=== PATIENT | female | born 1940 | race Caucasian/White ===

== ENCOUNTER → 2018-01-25 | Outpatient (CLI) | payer MEDICARE | END | disposition home or self-care (01) | LOC: LABPAT 10:33 | PROVIDERS: ATTEND Orthopaedic Surgery | DX: Z01.812 Encounter for preprocedural laboratory examination (principal) | CPT/HCPCS: 87070 ==

== ENCOUNTER → 2018-01-25 | Outpatient (CLI) | payer MEDICARE ==
[~2018-01-25] MED LIST: DOBUTamine DRIP for NUC MED 500 MG in DEXTROSE/WATER 1 250ML.BAG IV ONE
--- NOTE | 2018-01-25 13:40 | ECHOS ---
STRESS ECHOCARDIOGRAM DOBUTAMINE STRESS ECHO DATE OF SERVICE: 01/25/2018 INDICATIONS: Abnormal EKG. MEDICATIONS: BASELINE HEART RATE: 69 BASELINE BLOOD PRESSURE: 104/48 MAXIMUM HEART RATE: 124 MAXIMUM BLOOD PRESSURE: 133/50 85% MPHR: 123 100% MPHR: 145 METS: MAXIMUM STAGE REACHED: TOTAL EXERCISE TIME: CLINICAL INFORMATION: Baseline heart rate 69 beats per minute. Baseline blood pressure 104/48 mmHg. Occasional PVCs noted at baseline. Patient received dobutamine infusion per protocol up to 40 mcg. Heart rate and blood pressure remained normal. Peak heart rate 124 beats per minute with a stepwise increment in dobutamine infusion there was no ECG evidence for ischemia. However, the frequency of the PVCs increased without any nonsustained ventricular tachycardia. Trigeminal and quadrigeminal PVCs noted with dobutamine. Baseline 2D echo images showed normal LV size and systolic function. With dobutamine, there was a stepwise increment in overall LV contractility without developing any wall motion abnormalities. However, the images are suboptimal, but the patient refused echo contrast on account of her previous reaction to a different substance. At recovery regional global LV systolic function remained normal. IMPRESSION: 1. Significant increase in frequency of outflow tract PVCs with the left bundle branch block morphology with dobutamine infusion. No nonsustained ventricular tachycardia. 2. No ECG evidence for ischemia. No clear-cut echocardiographic evidence for ischemia. In the future for pharmacologic stress testing, the nuclear based approach will be used since her echo acoustic images are suboptimal and she has reacted to Definity contrast in the past. MMODL / IJN: [id number] /
== END | disposition home or self-care (01) ==
LOC: RADNMMAIN 08:53
PROVIDERS: ATTEND Family Medicine
DX: I49.3 Ventricular premature depolarization (principal); I44.7 Left bundle-branch block, unspecified
CPT/HCPCS: 93351; J1250

== ENCOUNTER 2018-02-04 12:59 | Inpatient (IN) | payer MEDICARE ==
[2018-01-29 14:39] VITALS: BMI 32.1
--- NOTE | 2018-02-03 13:13 | HP ---
HISTORY AND PHYSICAL REASON FOR ADMISSION: Surgery scheduled for 02/04/2018 HISTORY OF PRESENT ILLNESS: Meredith Nunes is a 77-year-old patient seen with progressive right knee symptomatic osteoarthritis. After treatment options were discussed with her, she elected to proceed with total knee arthroplasty. Consent regarding the procedure was obtained. Medical clearance was provided by Dr. Ramiro Ortiz. Nephrology clearance was provided by Dr. Mcbride. PAST MEDICAL HISTORY: Hypertension, hyperlipidemia, hypothyroidism, kidney disease. PAST SURGICAL HISTORY: Cataract surgery, hysterectomy, tonsillectomy. MEDS: Baclofen, gabapentin, hydralazine, levothyroxine, losartan, pravastatin, propranolol, and nefazodone ketogaga/baclo. ALLERGIES: NIACIN. SOCIAL HISTORY: Patient denies tobacco use. PHYSICAL EXAMINATION: Evaluation of the right knee range of motion is -2/3 to 120 degrees. There is tenderness along the medial joint line. Crepitus along the medial and patellofemoral compartments with range of motion. Pain with patellofemoral compression. Ligaments are stable. Hip rotation is without pain. Distal neurovascular exam is intact. RADIOGRAPHS: Radiographs of the right knee reveal severe medial moderate patellofemoral compartment osteoarthritis. IMPRESSION: 1. Right knee osteoarthritis. 2. Hypertension. 3. Hyperlipidemia. 4. Hypothyroidism. 5. Kidney disease. PLAN: Right total knee arthroplasty. Surgery scheduled 02/04/2018. MMODL / IJN: [id number] /
[~2018-02-04 12:59] MED LIST changes: +ACETAMINOPHEN TAB 500 MG TAB PO ONE; +DEXAMETHASONE SOD PHOSPHATE 10 MG/ML 1 ML VIAL IV ONE; -DOBUTamine DRIP for NUC MED 500 MG in DEXTROSE/WATER 1 250ML.BAG IV ONE; +LIDOCAINE 1% 20 ML VIAL (10MG/ML) FOR IV START INTRADERMA PRN; +MELOXICAM 7.5 MG TAB PO ONE; +MIDAZOLAM 2 MG/2 ML VIAL IV PRN; +ONDANSETRON 4 MG/2 ML VIAL IVP ONE; +ONDANSETRON 4 MG/2 ML VIAL ONE; +ROPIVACAINE 1,100 MG, SODIUM CHLORIDE 0.9% 330 ML MISCELLANE PRN; +TRANEXAMIC ACID 1,000 MG in SODIUM CHLORIDE 0.9% 50 ML IVPB ONE; +ceFAZolin IN SWFI 2 GM/20 ML SYRINGE IVP ONE; +fentaNYL (PF) 50 MCG/ML 2 ML AMP IV PRN
[2018-02-04] MEDS ORDERED: ROPIVACAINE 246.25 MG, EPINEPHrine 0.5 MG, KETOROLAC 30 MG, cloNIDine HCL/PF 80 MCG, WA... MISCELLANE ONE ×10 (13:19→14:51)
[2018-02-04] MEDS: LACTATED RINGERS 1,000 ML IV SCH ×2 (13:40→20:32)
[2018-02-04] MEDS ORDERED: MIDAZOLAM 2 MG/2 ML VIAL ONE ×2 (13:52→15:46)
[2018-02-04] MEDS ORDERED: fentaNYL (PF) 50 MCG/ML 2 ML AMP ONE (13:52)
[2018-02-04 13:55] LABS: Glucose,Whole Blood 96 mg/dL (75-99)
--- NOTE | 2018-02-04 15:18 | P.ONQ ---
Anesthesiology Proc Note - PNB - Peripheral Nerve Block Performed Right Adductor Canal Infusion Time Out Performed: Yes Procedure Start Time: 14:15 Indication: Acute Post-Operative Pain, Analgesia Specifically requested for management of pain by DrElkin: Jett Anguiano Sedation Type: Awake Preparation: Sterile Prep Position: Supine Catheter Depth at Skin (cm): 8 Catheter: Indwelling Needle Types: Other (see comment) (Pajunk) Needle Size: 100mm (4") Needle Gauge: 21 Technique: Ultrasound Injectate: 0.5% Ropivacaine (see comment for volume) (20cc) Blood Aspirated: No Pain Paresthesia on Injection Noted: No Resistance on Injection: Normal Events: Uneventful and Well Tolerated
[2018-02-04] MEDS ORDERED: SODIUM CHLORIDE 0.9% 100 ML BAG ONE (15:46)
[2018-02-04] MEDS ORDERED: diphenhydrAMINE 50 MG/ML 1 ML VIAL ONE (15:46)
[2018-02-04] MEDS ORDERED: TRANEXAMIC ACID 1,000 MG/10 ML VIAL ONE (15:46)
[2018-02-04] MEDS ORDERED: ePHEDrine SULFATE/0.9% NACL/PF 50 MG/5 ML SYRINGE IV ONE (15:46)
[2018-02-04] MEDS ORDERED: PROPOFOL 10 MG/ML 20 ML VIAL IV ONE (15:46)
[2018-02-04] MEDS ORDERED: ceFAZolin 3,000 MG in SODIUM CHLORIDE 0.9% IRRIGATIO 3,000 ML IRRIGATION ONE (16:27)
[2018-02-04] MEDS ORDERED: LACTATED RINGERS 1,000 ML IV ONE (17:00)
[2018-02-04] MEDS ORDERED: HYDROmorphone 1 MG/ML 1 ML SYRINGE IVP PRN ×3 (18:03)
[2018-02-04] MEDS ORDERED: HYDROcodone/APAP 7.5-325MG 1 EACH TAB PO PRN ×2 (18:03)
[2018-02-04] MEDS ORDERED: ONDANSETRON 4 MG/2 ML VIAL IVP PRN (18:03)
[2018-02-04] MEDS ORDERED: NALOXONE 0.4 MG/ML 1 ML VIAL IV PRN (18:03)
--- NOTE | 2018-02-04 18:03 | P.OP ---
Date of Procedure: 02/04/18 Preoperative Diagnosis: Right knee osteoarthritis Postoperative Diagnosis: Right knee osteoarthritis Procedure(s) Performed: Right total knee arthroplasty Implants: 1. Microport evolution MP size 4 right cemented femoral component 2. Microport evolution size 4 right keeled tibial baseplate 3. Microport evolution MP CS size 4 right 14 mm polyethylene tibial insert 4. Microport advance 35 mm all polyethylene cemented patella Anesthesia: regional (Adductor canal catheter), local, spinal Surgeon: Jett Anguiano Extractor Tender Raw Stock #1: Roly Ross Estimated Blood Loss (ml): 75 Pathology: other (Bone) Condition: stable Disposition: PACU Indications for Procedure: 77-year-old patient seen with symptomatic right knee osteoarthritis. After treatment options were discussed, she elected to proceed with total knee arthroplasty. Operative Findings: See description of procedure Description of Procedure: Patient was taken to the operative suite after having an adductor canal catheter placed by the department of anesthesia. Patient underwent a spinal anesthetic by the department of anesthesia. Patient was given preoperative IV intake antibiotics and TXA. A well-padded tourniquet was placed about the right lower extremity. The lower extremity was then prepped and draped in the normal sterile orthopedic fashion. The extremity was elevated, a tourniquet was insufflated to 350. A standard anterior incision was made sharply through skin. Dissection was taken down through the subcutaneous soft tissues down to the extensor mechanism. A medial arthrotomy was performed, patella was everted and knee was flexed. There was advanced osteoarthritis noted. A proximal tibial cutting guide was positioned. Proximal tibial cut was made. A distal intramedullary femoral cutting guide was positioned, distal femoral cut made. We placed the appropriate sizing guide and selected the appropriate size. A distal 4-in-1 femoral cutting block was positioned, distal femoral cuts were made. We now placed a trial femoral component into position, along with an appropriate size tibial tray and insert. We now took the knee through range of motion and had full extension good flexion and good overall soft tissue balance noted. The patella was everted and a flush cut made with patellar quad tendon. We templated the patella, appropriate drill holes were made. An appropriate trial patella was positioned, knee was taken through full range of motion with the patella tracking very nicely. The trial patella was removed. Drill holes were made through the femoral component. All trial components were removed after marking off the appropriate rotation of the tibia. Retractors were now positioned along the proximal tibia. An appropriate keel punch was made with the appropriate size tibial guide. At this point appropriate size implants were chosen and opened. The joint was irrigated copiously with pulse lavage mechanical irrigation. The posterior capsule was infiltrated with local analgesic. We mixed antibiotic methylmethacrylate. Once the methyl methacrylate was ready, the tibial component was cemented into place removing any excess methylmethacrylate. The femoral component was cemented into place removing the removing any excess methylmethacrylate. We then inserted the appropriate size polyethylene tibial insert. We made sure that it was locked into position. We took the knee into full extension, and then back in a flexion making sure we had removed any excess methylmethacrylate. The patellar component was then cemented down and secured with clamp. Excess methylmethacrylate removed. We kept the knee in full extension, patellar clamp in position until methylmethacrylate had hardened. Once it had hardened the patellar clamp was removed. The knee was taken through full range of motion. The patella tracked nicely. There was good soft tissue balancing. The tourniquet was now released. Additional hemostasis was achieved via electrocautery. A second gram of TXA was given. The wound was irrigated with pulse lavage mechanical irrigation. The superficial soft tissues were infiltrated local analgesic. The extensor mechanism was repaired with Vicryl. We checked the repair with range of motion and it was stable. The subcutaneous soft tissues were repaired with Vicryl in layers. The skin was approximated with pernio/Dermabond. Sterile dressings were applied followed by loose web roll and Mak bandage. The patient was transferred to a bed, and taken to recovery in stable and satisfactory condition. Tito HUDSON assisted with the procedure.
--- NOTE | 2018-02-04 18:47 | XR ---
EXAMINATION TYPE: XR knee limited RT DATE OF EXAM: 02/04/2018 COMPARISON: NONE HISTORY: Postop knee surgery TECHNIQUE: 2 views FINDINGS: There is right knee prosthesis. Components are in anatomic position. IMPRESSION: No complicating process seen.
[2018-02-04] MEDS ORDERED: BACLOFEN 10 MG TAB PO SCH (21:00)
[2018-02-04] MEDS ORDERED: DULoxetine HCL 30 MG CAPSULE.DR PO SCH (21:00)
[2018-02-04] MEDS ORDERED: SENNOSIDES-DOCUSATE SODIUM 1 EACH TAB PO SCH (21:00)
[2018-02-04] MEDS: ENOXAPARIN 30 MG/0.3 ML SYRINGE SQ SCH (21:54)
[2018-02-04] MEDS: SODIUM CHLORIDE 0.9% 1,000 ML IV SCH (21:56)
[2018-02-04] MEDS: GABAPENTIN 300 MG CAP PO SCH (21:56)
[2018-02-04] MEDS: hydrOXYzine HCL 10 MG TAB PO SCH (21:57)
[2018-02-04] MEDS: FAMOTIDINE 20 MG TAB PO SCH (21:59)
[2018-02-04] MEDS: traMADol 50 MG TAB PO SCH (23:14)
[2018-02-04] MEDS: ceFAZolin IN SWFI 2 GM/20 ML SYRINGE IVP SCH (23:15)
[2018-02-05] MEDS ORDERED: LEVOTHYROXINE 25 MCG TAB PO SCH (06:00)
[2018-02-05] MEDS: GABAPENTIN 300 MG CAP PO SCH (08:10)
[2018-02-05] MEDS: FAMOTIDINE 20 MG TAB PO SCH (08:10)
[2018-02-05] MEDS: ENOXAPARIN 30 MG/0.3 ML SYRINGE SQ SCH (08:10)
[2018-02-05 08:11] LABS: Basophils % (A) 0 %; Eosinophils % (A) 0 %; HCT 36.9 % (34.0-46.0); HGB 11.7 gm/dL (11.4-16.0); Lymphocytes # (A) 1.2 k/uL (1.0-4.8); Lymphocytes % (A) 10 %; MCHC 31.7 g/dL (31.0-37.0); MCV 94.7 fL (80.0-100.0); Mean Platelet Volume 7.3; Monocytes # (A) 0.7 k/uL (0-1.0); Monocytes % (A) 5 %; Neutrophils # (A) 10.3 k/uL (1.3-7.7); Neutrophils % (A) 85 %; Platelet Count 295 k/uL (150-450); RBC 3.89 m/uL (3.80-5.40); RDW 13.3 % (11.5-15.5); WBC 12.2 k/uL (3.8-10.6)
[2018-02-05] MEDS: hydrOXYzine HCL 10 MG TAB PO SCH (08:11)
[2018-02-05] MEDS: traMADol 50 MG TAB PO SCH ×2 (08:11→14:06)
[2018-02-05] MEDS: ceFAZolin IN SWFI 2 GM/20 ML SYRINGE IVP SCH (08:59)
[2018-02-05] MEDS ORDERED: MELOXICAM 7.5 MG TAB PO SCH (09:00)
[2018-02-05] MEDS ORDERED: PROPRANOLOL LA 60 MG CAP.SA.24H PO SCH (09:00)
[2018-02-05] MEDS ORDERED: FAMOTIDINE 20 MG TAB PO SCH (09:00)
[2018-02-05 10:13] VITALS: BP 117/63; PULSE 92; RESP 12; TEMP 98.8
--- NOTE | 2018-02-05 11:09 | P.PN ---
Progress Note - Text Anesthesia POD 1. Patient is status post right TKA under spinal anesthesia with a right adductor canal catheter placed for postoperative pain relief. With ropivacaine 0.2% running at 8 cc's per hour, the patient's VAS is (1, 3). Catheter site is clean dry and intact.
--- NOTE | 2018-02-05 13:27 | P.PN ---
Subjective Progress Note Date: 02/05/18 Principal diagnosis: Status post right total knee arthroplasty Patient seen today resting in her hospital bed, she appears comfortable. Her is present at bedside. She denies any acute pain. She denies any headaches, lightheadedness, chest pain or shortness of breath. Objective - Vital Signs Vital signs: Vital Signs Temp 98.8 F 02/05/18 08:11 Pulse 92 02/05/18 08:11 Resp 12 02/05/18 08:11 BP 117/63 02/05/18 08:11 Pulse Ox 92 L 02/05/18 08:11 Intake & Output 02/04/18 02/05/18 02/05/18 18:59 06:59 18:59 Intake Total 1301 100 Output Total 75 600 Balance 1226 -500 Intake: IV 1301 Oral 100 Output: Urine 600 Estimated Blood Loss 75 Other: Voiding Method Toilet # Voids 1 - Exam Right lower extremity: Incision is clean, dry, and intact. The prineo tape is in good condition. There is minimal soft tissue swelling and ecchymosis surrounding the medial and lateral aspects of the incision. Calf is soft, no tenderness with palpation. Plantar flexion, dorsiflexion, EHL, FHL are intact. Sensory exam to light touch throughout the extremity is intact, dorsal pedis pulses 2+. - Labs CBC & Chem 7: 02/05/18 06:49 Labs: Abnormal Lab Results - Last 24 Hours (Table) 02/05/18 Range/Units 06:49 WBC 12.2 H (3.8-10.6) k/uL Neutrophils # 10.3 H (1.3-7.7) k/uL Assessment and Plan Plan: Assessment: Postop day 1 status post right total knee arthroplasty Plan: Pain control, we'll discharge home on oral medication GI and DVT prophylaxis, aspirin 325 mg twice a day Wound care instructions discussed Home therapy and nursing after discharge Medical recommendations Discharge planning: Patient will be discharged home today Time with Patient: Less than 30
--- NOTE | 2018-02-05 13:31 | P.DS ---
Providers Date of admission: 02/04/18 12:59 Expected date of discharge: 02/05/18 Attending physician: Jett Anguiano Consults: 02/04/18 18:03 Consult Physician Routine Consulting Provider: Ramiro Ortiz Consult Reason/Comments: Medical management Do you want consulting provider notified?: Yes 02/04/18 19:03 Consult Physician Routine Consulting Provider: Heidy Francois Consult Reason/Comments: medical managment Do you want consulting provider notified?: Yes Primary care physician: Ramiro Ortiz [place] [facility] Course: Date of admission: 02/04/2018 Date of discharge: 02/05/2018 Admission diagnosis: Status post right total knee arthroplasty Discharge diagnosis: same Attending physician: Dr. Anguiano Surgical procedures: right total knee arthroplasty Brief history: Patient is a 77-year-old female with a history of progressive primary right knee osteoarthritis. At this point patient has failed conservative treatment measures and has opted to proceed with a elective right total knee arthroplasty. Hospital course: Details of patient's surgery can be found in operative report. Patient tolerated the procedure well and was subsequently transported to orthopedic floor. Patient's orthopeidc and medical care was provided daily. Patient had daily laboratory tests performed for evaluation of overall blood counts . Patient had daily physical therapy to include strengthening range of motion as well as education with walker ambulation. Patient had daily CPM usage as part of their physical therapy program. Patient was treated with Lovenox for their postoperative DVT prophylaxis during their inpatient stay. Patient was noted to have a relatively uneventful postoperative course. Patient reported satisfactory pain control with oral pain medications by postoperative day 0. Patient showed satisfactory progress with physical therapy. Patient moved steadily through the program and had no difficulty meeting the goals by postoperative day 1. Given patient's otherwise satisfactory course and having met physical therapy goals, plan is to discharge patient home on postoperative day 1. Discharge condition/disposition: Patient will be discharged home in stable condition. Discharge medications: Instructions are given on resumption of patient's normal daily medications per primary care recommendation, in addition patient will be prescribed [place] 7.5 mg/325 mg, tramadol 50 mg, aspirin 325 mg. Discharge instructions: 1. Wound care and infection precautions, keep incision dry and covered while showering, no lotions, creams, moisturizers. No soaking, tubs, pools, hottubs. Do not scrub over the incision. 2. Weight-bear as tolerated with walker / cane until follow-up. 3. Ice and elevate when necessary. Do not exceed 20 minutes per hour with ice pack. 4. Utilize compression sleeve until seen at first follow up appointment. 5. Visiting nursing care. 6. Home physical therapy including home CPM. 7. Pain meds and anticoagulants per prescription. 8. Pain medication has potential to cause constipation. Increase oral fluid and fiber intake. Contact primary care provider if you have not had a bowel movement within 48 hours after discharge 9. No anti-inflammatory medication until discussed at first post operative visit, this including Motrin, Aleve, Mobic, Diclofenac. 10. Follow up in office at 2 weeks postop with Tito Ross PA-C 11. Follow up with your primary care doctor 7-10 days after discharge. 12. Contact [facility] with any questions, . Procedures: Right total knee arthroplasty Patient Condition at Discharge: Good Plan - Discharge Summary Discharge Rx Participant: Yes New Discharge Prescriptions: New Aspirin 325 mg PO BID #60 tab HYDROcodone/APAP 7.5-325MG [[place]woods 7.5] 1 - 2 each PO Q6HR PRN #56 tab PRN Reason: Pain traMADol HCl [Ultram] 50 mg PO Q6H PRN #28 tab PRN Reason: Pain No Action Cyanocobalamin (Vitamin B-12) [Vitamin B-12] 3,000 mcg PO DAILY Cholecalciferol [Vitamin D3] 5,000 unit PO BID Vitamin E (Dl,Tocopheryl Acet) [Vitamin E] 400 unit PO DAILY Propranolol HCl [Inderal] 60 mg PO QAM Pravastatin Sodium [Pravachol] 10 mg PO Q48H Baclofen 10 mg PO HS rOPINIRole HCL [Requip] 1 mg PO BID Levothyroxine Sodium 25 mcg PO QAM hydrOXYzine HCL [Atarax] 10 mg PO BID Nefazodone HCl 150 mg PO DAILY@1500 DULoxetine HCL [Cymbalta] 30 mg PO HS Floragen 3 (Dose Unknown) 1 tab PO DAILY Clobetasol Propionate [Temovate 0.05% Cream] 1 applic TOPICAL BID Lidocaine/Phylocaine 1 applicate TOPICAL QID PRN PRN Reason: Pain Ketogaba/Baclo/Lido/Prilo(Nmc) 1 applicate TOPICAL TID PRN PRN Reason: Pain Triamcinolone 0.5% Cream [Kenalog 0.5% Cream] 1 applic TOPICAL TID PRN PRN Reason: Rash Losartan [Cozaar] 25 mg PO HS Discharge Medication List Baclofen 10 mg PO HS 01/29/18 [History] Cholecalciferol [Vitamin D3] 5,000 unit PO BID 01/29/18 [History] Clobetasol Propionate [Temovate 0.05% Cream] 1 applic TOPICAL BID 01/29/18 [ History] Cyanocobalamin (Vitamin B-12) [Vitamin B-12] 3,000 mcg PO DAILY 01/29/18 [ History] DULoxetine HCL [Cymbalta] 30 mg PO HS 01/29/18 [History] Floragen 3 (Dose Unknown) 1 tab PO DAILY 01/29/18 [History] Ketogaba/Baclo/Lido/Prilo(Nmc) 1 applicate TOPICAL TID PRN 01/29/18 [History] Levothyroxine Sodium 25 mcg PO QAM 01/29/18 [History] Lidocaine/Phylocaine 1 applicate TOPICAL QID PRN 01/29/18 [History] Nefazodone HCl 150 mg PO DAILY@1500 01/29/18 [History] Pravastatin Sodium [Pravachol] 10 mg PO Q48H 01/29/18 [History] Propranolol HCl [Inderal] 60 mg PO QAM 01/29/18 [History] Triamcinolone 0.5% Cream [Kenalog 0.5% Cream] 1 applic TOPICAL TID PRN 01/29/18 [History] Vitamin E (Dl,Tocopheryl Acet) [Vitamin E] 400 unit PO DAILY 01/29/18 [History] hydrOXYzine HCL [Atarax] 10 mg PO BID 01/29/18 [History] rOPINIRole HCL [Requip] 1 mg PO BID 01/29/18 [History] Losartan [Cozaar] 25 mg PO HS 02/04/18 [History] Aspirin 325 mg PO BID #60 tab 02/05/18 [Rx] HYDROcodone/APAP 7.5-325MG [[place]woods 7.5] 1 - 2 each PO Q6HR PRN #56 tab 02/05/18 [ Rx] traMADol HCl [Ultram] 50 mg PO Q6H PRN #28 tab 02/05/18 [Rx] Follow up Appointment(s)/Referral(s): Ramiro Ortiz MD [Primary Care Provider] - 02/12/18 3:00 pm [facility], [NON-STAFF] - Roly Ross PAC [PHYSICIAN ANTENNA RIGGER] - 02/20/18 4:00 pm Patient Instructions/Handouts: Knee Replacement (DC) Activity/Diet/Wound Care/Special Instructions: Orthopedic Discharge Instructions: 1. Wound care and infection precautions, keep incision dry and covered while showering, no lotions, creams, moisturizers. No soaking, pools, hot tubs. Do not scrub over incision. 2. Weight-bear as tolerated with walker / cane until follow-up. 3. Ice and elevate when necessary. Do not exceed 20 minutes per hour with ice pack. 4. Utilize compression sleeve until seen at first follow up appointment. 5. Visiting nursing care. 6. Home physical therapy including home CPM. 7. Pain meds and anticoagulants per prescription. 8. Pain medication has potential to cause constipation. Increase oral fluid and fiber intake. Contact primary care provider if you have not had a bowel movement within 48 hours after discharge. 9. No anti-inflammatory medication until discussed at first post operative visit, this including Motrin, Aleve, Mobic, Diclofenac 10. Follow up in office at 2 weeks postop with Tito Ross PA-C 11. Follow up with your primary care doctor 7-10 days after discharge. 12. Contact [facility] with any questions, . Discharge Disposition: HOME WITH HOME HEALTH SERVICES
--- NOTE | 2018-02-05 13:59 | P.CONS ---
History of Present Illness - History of Present Illness This is a pleasant 77 years old female with past medical history of COPD, GERD, hyperlipidemia, hypertension, cervicitis, pneumonia, there disorder, psoriasis, migraine, history of brain aneurysm, neuropathic, CKD stage III spinal stenosis , restless leg syndrome and osteoarthritis who presents because of DrElkin right knee arthroplasty, for her right knee osteoarthritis who failed conservative treatment measures Review of Systems CONSTITUTIONAL: No fever, no malaise, no fatigue. HEENT: No recent visual problems or hearing problems. Denied any sore throat. CARDIOVASCULAR: No orthopnea, PND, no palpitations, no syncope. PULMONARY: No shortness of breath, no cough, no hemoptysis. GASTROINTESTINAL: No diarrhea, no nausea, no vomiting, no abdominal pain. Normoactive bowel sounds. NEUROLOGICAL: No headaches, no weakness, no numbness. HEMATOLOGICAL: Denies any bleeding or petechiae. GENITOURINARY: Denies any burning micturition, frequency, or urgency. MUSCULOSKELETAL/RHEUMATOLOGICAL: Denies any joint pain, swelling, or any muscle pain. ENDOCRINE: Denies any polyuria or polydipsia. Past Medical History Past Medical History: COPD, GERD/Reflux, Hyperlipidemia, Hypertension, Osteoarthritis (OA), Pneumonia, Skin Disorder, Thyroid Disorder Additional Past Medical History / Comment(s): psoriasis, migraines, hx brain aneurysm, varicose veins, palpitations with anxiety attacks, emphysema, bronchitis, neuropathy, hypoglycemia, stage III kidney disease, degenerative disk diasease, dry eyes/eye distortion/double vision, spinal stenosis, urinary leakage(wears pads), restless legs History of Any Multi-Drug Resistant Organisms: None Reported Past Surgical History: Appendectomy, Hysterectomy, Orthopedic Surgery, Tonsillectomy Additional Past Surgical History / Comment(s): surgery for brain aneurysm/clips( can not have MRI's), ORIF left wrist, cyst removed under eyelids, sinus fisutula surgery, mult foot surgergies(bunions, toes rearranged, tumors in feet removed), jia cataracts, membrane on retina removed jia eyes, yag procedure to put holes in lens jia eyes, Past Anesthesia/Blood Transfusion Reactions: No Reported Reaction Past Psychological History: Anxiety, Depression Smoking Status: Former smoker Past Alcohol Use History: Daily Additional Past Alcohol Use History / Comment(s): quit smoking 10 yrs ago, smoked for 50 yrs, 1 PPD. Past Drug Use History: None Reported - Past Family History Father Family Medical History: Cancer Additional Family Medical History / Comment(s): colon Brother(s) Family Medical History: Cancer Additional Family Medical History / Comment(s): pancreatic Medications and Allergies Home Medications Medication Instructions Recorded Confirmed Type Baclofen 10 mg PO HS 01/29/18 02/04/18 History Cholecalciferol [Vitamin D3] 5,000 unit PO BID 01/29/18 02/04/18 History Clobetasol Propionate [Temovate 1 applic TOPICAL BID 01/29/18 02/04/18 History 0.05% Cream] Cyanocobalamin (Vitamin B-12) 3,000 mcg PO DAILY 01/29/18 02/04/18 History [Vitamin B-12] DULoxetine HCL [Cymbalta] 30 mg PO HS 01/29/18 02/04/18 History Floragen 3 (Dose Unknown) 1 tab PO DAILY 01/29/18 02/04/18 History Ketogaba/Baclo/Lido/Prilo(Nmc) 1 applicate TOPICAL TID PRN 01/29/18 02/04/18 History Levothyroxine Sodium 25 mcg PO QAM 01/29/18 02/04/18 History Lidocaine/Phylocaine 1 applicate TOPICAL QID PRN 01/29/18 02/04/18 History Nefazodone HCl 150 mg PO DAILY@1500 01/29/18 02/04/18 History Pravastatin Sodium [Pravachol] 10 mg PO Q48H 01/29/18 02/04/18 History Propranolol HCl [Inderal] 60 mg PO QAM 01/29/18 02/04/18 History Triamcinolone 0.5% Cream [Kenalog 1 applic TOPICAL TID PRN 01/29/18 02/04/18 History 0.5% Cream] Vitamin E (Dl,Tocopheryl Acet) 400 unit PO DAILY 01/29/18 02/04/18 History [Vitamin E] hydrOXYzine HCL [Atarax] 10 mg PO BID 01/29/18 02/04/18 History rOPINIRole HCL [Requip] 1 mg PO BID 01/29/18 02/04/18 History Losartan [Cozaar] 25 mg PO HS 02/04/18 02/04/18 History Aspirin 325 mg PO BID #60 tab 02/05/18 Rx HYDROcodone/APAP 7.5-325MG [[place] 1 - 2 each PO Q6HR PRN #56 tab 02/05/18 Rx 7.5] traMADol HCl [Ultram] 50 mg PO Q6H PRN #28 tab 02/05/18 Rx Allergies Allergy/AdvReac Type Severity Reaction Status Date / Time Iodinated Contrast- Oral and Allergy Dyspnea Verified 02/04/18 19:20 IV Dye niacin Allergy headaches Verified 02/04/18 19:20 and shakes Edlixqu-Jad-Lex Reductase Allergy dizziness Verified 02/04/18 19:20 Inhibitor perflutren [From [employer]] AdvReac Dyspnea Verified 02/04/18 19:20 Physical Exam Vitals: Vital Signs Temp Pulse Pulse Resp BP Pulse Ox 02/05/18 08:11 98.8 F 92 12 117/63 92 L 02/05/18 01:10 98.2 F 89 16 108/72 90 L 02/04/18 21:00 76 130/79 02/04/18 20:45 80 137/83 02/04/18 20:30 76 146/90 02/04/18 20:29 94 L 02/04/18 20:15 71 130/81 02/04/18 20:00 74 135/87 02/04/18 19:45 81 141/70 02/04/18 19:30 67 155/105 02/04/18 19:15 69 110/61 02/04/18 19:00 97.5 F L 71 16 115/73 94 L 02/04/18 18:42 68 16 122/63 96 02/04/18 18:27 66 16 141/76 96 02/04/18 18:12 97.1 F L 71 20 145/67 92 L 02/04/18 14:30 66 16 107/58 96 Intake and Output 02/04/18 02/05/18 02/05/18 22:59 06:59 14:59 Intake Total 1101 Output Total 75 600 Balance 1026 -600 Intake: IV 1001 Oral 100 Output: Urine 600 Estimated Blood Loss 75 Other: Voiding Method Toilet # Voids 1 GENERAL: The patient is alert and oriented x3, not in any acute distress. Well developed, well nourished. HEENT: Pupils are round and equally reacting to light. EOMI. No scleral icterus. No conjunctival pallor. Normocephalic, atraumatic. No pharyngeal erythema. No thyromegaly. CARDIOVASCULAR: S1 and S2 present. No murmurs, rubs, or gallops. PULMONARY: Chest is clear to auscultation, no wheezing or crackles. ABDOMEN: Soft, nontender, nondistended, normoactive bowel sounds. No palpable organomegaly. MUSCULOSKELETAL: No joint swelling or deformity. -Right knee incision is clean and dry, her examination deferred to the primary team EXTREMITIES: No cyanosis, clubbing, or pedal edema. NEUROLOGICAL: Gross neurological examination did not reveal any focal deficits. SKIN: No rashes. Results CBC & Chem 7: 02/05/18 06:49 Labs: Abnormal Lab Results - Last 24 Hours (Table) 02/05/18 Range/Units 06:49 WBC 12.2 H (3.8-10.6) k/uL Neutrophils # 10.3 H (1.3-7.7) k/uL Assessment and Plan Assessment: osteoarthritis, including the right knee joint Status post total right knee arthroplasty by the orthopedic team COPD GERD hyperlipidemia hypertension Hypothyroidism psoriasis, migraine, history of brain aneurysm neuropathy CKD stage III spinal stenosis restless leg syndrome Plan: Continue with same treatment. Continue symptomatic treatment. Resume home medication. Patient with leukocytosis mostly its reactive from surgery, patient doesn't have overt signs symptoms of infection. Antibiotics will have more than benefits. We recommend close monitoring of white blood cell count as per primary team whether inpatient or outpatient. Pain management and DVT prophylaxis as per primary team. We recommend patient to follow-up with her primary care doctor in 1 week after discharge, patient already has an appointment with her PCP on 02/12/18 at 3 PM patient confirmed to me she agrees with this appointment time and date. Instructed her to check her blood cells with her PCP within [facility] and she verbalized understanding and acceptance Recommendation discussed with staff Thank you for consulting us
[2018-02-05] MEDS: LACTATED RINGERS 1,000 ML IV SCH (14:59)
[2018-02-05] MEDS ORDERED: NEFAZODONE HCL PO SCH (15:00)
[2018-02-05] MEDS: SODIUM CHLORIDE 0.9% 1,000 ML IV SCH (15:00)
[2018-02-05] MEDS ORDERED: LOSARTAN 25 MG TAB PO SCH (21:00)
== END 2018-02-05 15:50 | disposition home health service (06) | DRG 470 ==
LOC: 2ORMAIN 12:59 → 3SUR 18:48
PROVIDERS: ADMIT Orthopaedic Surgery; ATTEND Orthopaedic Surgery
PROC: 0SRC0J9 Replacement of Right Knee Joint with Synthetic Substitute, Cemented, Open Approach (ICD-10-PCS; principal; 2018-02-04 15:20)
DX: M17.11 Unilateral primary osteoarthritis, right knee (principal); N25.81 Secondary hyperparathyroidism of renal origin; I67.1 Cerebral aneurysm, nonruptured; G62.9 Polyneuropathy, unspecified; J43.9 Emphysema, unspecified; N18.3 Chronic kidney disease, stage 3 (moderate); I12.9 Hypertensive chronic kidney disease with stage 1 through stage 4 chronic kidney disease, or unspecified chronic kidney disease; E78.5 Hyperlipidemia, unspecified; L40.9 Psoriasis, unspecified; E03.9 Hypothyroidism, unspecified; F41.9 Anxiety disorder, unspecified; G25.81 Restless legs syndrome; K21.9 Gastro-esophageal reflux disease without esophagitis; G43.909 Migraine, unspecified, not intractable, without status migrainosus; H04.123 Dry eye syndrome of bilateral lacrimal glands; I83.90 Asymptomatic varicose veins of unspecified lower extremity; F32.9 Major depressive disorder, single episode, unspecified; E55.9 Vitamin D deficiency, unspecified; M48.00 Spinal stenosis, site unspecified; R32 Unspecified urinary incontinence; M85.80 Other specified disorders of bone density and structure, unspecified site; Z79.890 Hormone replacement therapy; Z79.899 Other long term (current) drug therapy; Z87.891 Personal history of nicotine dependence; Z90.710 Acquired absence of both cervix and uterus; Z90.49 Acquired absence of other specified parts of digestive tract; Z87.01 Personal history of pneumonia (recurrent); Z98.42 Cataract extraction status, left eye; Z98.41 Cataract extraction status, right eye; Z80.0 Family history of malignant neoplasm of digestive organs; Z88.8 Allergy status to other drugs, medicaments and biological substances; Z91.041 Radiographic dye allergy status
CPT/HCPCS: 85025; 88300; 94760

== ENCOUNTER 2018-02-07 15:55 | Emergency (ER) | payer MEDICARE ==
[2018-02-07 16:09] VITALS: RESP 18
[2018-02-07] MEDS ORDERED: SODIUM CHLORIDE 0.9% 500 ML IV STA (17:44)
[2018-02-07] MEDS ORDERED: ACETAMINOPHEN TAB 325 MG TAB PO STA (17:50)
--- NOTE | 2018-02-07 17:50 | ED ---
Weakness HPI - General Chief complaint: Weakness Stated complaint: Sent by Ortho/ abn labs Source: patient Mode of arrival: wheelchair Limitations: no limitations - History of Present Illness Initial comments: 77-year-old female patient with extensive past medical history recently underwent right knee replacement on Sunday with Dr. Anguiano. Patient states recovery has been going well, however today she felt more weak than usual. States that her physical therapist took her vital signs and found her to have a fever and a low oxygen saturation. Patient states he has been more short of breath than usual. States that she developed a cough yesterday with clear sputum production. She denies any chest pain, dizziness, nausea, vomiting, palpitations, numbness, or tingling. Patient states that she did have increased pain to the right posterior knee. Denies any drainage from the knee incisions. Patient denies any recent rash, abdominal pain, diarrhea, constipation, back pain, hematuria, dysuria, urinary urgency, urinary frequency , headache, visual changes, or any other complaints. - Related Data Home Medications Medication Instructions Recorded Confirmed Baclofen 10 mg PO HS 01/29/18 02/07/18 Cholecalciferol [Vitamin D3] 5,000 unit PO BID 01/29/18 02/07/18 Clobetasol Propionate [Temovate 1 applic TOPICAL BID 01/29/18 02/07/18 0.05% Cream] Cyanocobalamin (Vitamin B-12) 3,000 mcg PO DAILY 01/29/18 02/07/18 [Vitamin B-12] DULoxetine HCL [Cymbalta] 30 mg PO HS 01/29/18 02/07/18 Floragen 3 (Dose Unknown) 1 tab PO DAILY 01/29/18 02/07/18 Ketogaba/Baclo/Lido/Prilo(Nmc) 1 applicate TOPICAL TID PRN 01/29/18 02/07/18 Levothyroxine Sodium 25 mcg PO QAM 01/29/18 02/07/18 Lidocaine/Phylocaine 1 applicate TOPICAL QID PRN 01/29/18 02/07/18 Nefazodone HCl 150 mg PO DAILY@1500 01/29/18 02/07/18 Pravastatin Sodium [Pravachol] 10 mg PO Q48H 01/29/18 02/07/18 Propranolol HCl [Inderal] 60 mg PO QAM 01/29/18 02/07/18 Triamcinolone 0.5% Cream [Kenalog 1 applic TOPICAL TID PRN 01/29/18 02/07/18 0.5% Cream] Vitamin E (Dl,Tocopheryl Acet) 400 unit PO DAILY 01/29/18 02/07/18 [Vitamin E] hydrOXYzine HCL [Atarax] 10 mg PO BID 01/29/18 02/07/18 rOPINIRole HCL [Requip] 1 mg PO BID 01/29/18 02/07/18 Losartan [Cozaar] 25 mg PO HS 02/04/18 02/07/18 Previous Rx's Medication Instructions Recorded Aspirin 325 mg PO BID #60 tab 02/05/18 HYDROcodone/APAP 7.5-325MG [[place] 1 - 2 each PO Q6HR PRN #56 tab 02/05/18 7.5] traMADol HCl [Ultram] 50 mg PO Q6H PRN #28 tab 02/05/18 Allergies Allergy/AdvReac Type Severity Reaction Status Date / Time Iodinated Contrast- Oral and Allergy Dyspnea Verified 02/07/18 17:51 IV Dye niacin Allergy headaches Verified 02/07/18 17:51 and shakes Rrhmywt-Gvm-Iou Reductase Allergy dizziness Verified 02/07/18 17:51 Inhibitor perflutren [From [email or web address]] AdvReac Dyspnea Verified 02/07/18 17:51 Review of Systems ROS Statement: Those systems with pertinent positive or pertinent negative responses have been documented in the HPI. ROS Other: All systems not noted in ROS Statement are negative. Past Medical History Past Medical History: COPD, GERD/Reflux, Hyperlipidemia, Hypertension, Osteoarthritis (OA), Pneumonia, Skin Disorder, Thyroid Disorder Additional Past Medical History / Comment(s): psoriasis, migraines, hx brain aneurysm, varicose veins, palpitations with anxiety attacks, emphysema, bronchitis, neuropathy, hypoglycemia, stage III kidney disease, degenerative disk diasease, dry eyes/eye distortion/double vision, spinal stenosis, urinary leakage(wears pads), restless legs History of Any Multi-Drug Resistant Organisms: None Reported Past Surgical History: Appendectomy, Hysterectomy, Orthopedic Surgery, Tonsillectomy Additional Past Surgical History / Comment(s): surgery for brain aneurysm/clips( can not have MRI's), ORIF left wrist, cyst removed under eyelids, sinus fisutula surgery, mult foot surgergies(bunions, toes rearranged, tumors in feet removed), jia cataracts, membrane on retina removed jia eyes, yag procedure to put holes in lens jia eyes, Past Anesthesia/Blood Transfusion Reactions: No Reported Reaction Past Psychological History: Anxiety, Depression Smoking Status: Former smoker Past Alcohol Use History: Daily Past Drug Use History: None Reported - Past Family History Father Family Medical History: Cancer Additional Family Medical History / Comment(s): colon Brother(s) Family Medical History: Cancer Additional Family Medical History / Comment(s): pancreatic General Exam Limitations: no limitations General appearance: alert, in no apparent distress, other (This is a well- developed, well-nourished elderly female patient in no acute distress. Vital signs upon presentation are temperature 99.2F, pulse 85, respirations 18, blood pressure 111/58, pulse ox 92% on room air.) Eye exam: Present: normal appearance, PERRL, EOMI. Absent: scleral icterus, conjunctival injection, periorbital swelling ENT exam: Present: normal exam, normal oropharynx, mucous membranes moist Respiratory exam: Present: normal lung sounds bilaterally. Absent: respiratory distress, wheezes, rales, rhonchi, stridor Cardiovascular Exam: Present: regular rate, normal rhythm, normal heart sounds. Absent: systolic murmur, diastolic murmur, rubs, gallop, clicks GI/Abdominal exam: Present: soft, normal bowel sounds. Absent: distended, tenderness, guarding, rebound, rigid Extremities exam: Present: full ROM, normal capillary refill, other (Patient has a midline vertical right knee incision that is well approximated. There is small puncture wound to the left medial thigh. Right leg is swollen, no significant erythema, right knee joint is hot to touch.). Absent: normal inspection, tenderness, pedal edema, joint swelling, calf tenderness Neurological exam: Present: alert, oriented X3, CN II-XII intact Psychiatric exam: Present: normal affect, normal mood Skin exam: Present: warm, dry, intact, normal color. Absent: rash Course Vital Signs 02/07/18 02/07/18 02/07/18 16:04 18:21 20:08 Temperature 99.2 F Pulse Rate 85 76 72 Respiratory 18 18 18 Rate Blood Pressure 111/58 145/75 120/59 O2 Sat by Pulse 92 L 94 L 95 Oximetry 02/07/18 02/07/18 20:56 23:25 Temperature 98.7 F Pulse Rate 74 73 Respiratory 18 18 Rate Blood Pressure 105/52 148/71 O2 Sat by Pulse 95 92 L Oximetry EKG Findings - EKG Comments: EKG Findings:: EKG obtained at 1759 shows normal sinus rhythm with a ventricular rate of 75, GA interval 208, QRS duration 78, QT 376, QTC 419. No evidence of ST elevation or depression. Medical Decision Making - Medical Decision Making 77-year-old female patient presents emergency department today for evaluation of weakness, low oxygen saturation, and increased shortness of breath. Physical examination was relatively unremarkable. She does have midline right knee incision with some surrounding erythema and swelling. Lungs are clear to auscultation with good air movement. Oxygen was 92% on room air upon arrival. Chest x-ray showed concern for interstitial pulmonary edema however he did perform CT angio of the chest to rule out PE which showed fibrotic changes but no evidence for pulmonary embolism. Labs reviewed and showed a white blood cell count of 11.0, hemoglobin of 11.2, BUN 23, creatinine 1.05, lactic acid 2.1, total creatinine kinase of 1129. Urinalysis was negative for any evidence of infection. Labs are slightly improved from Sunday. Upon reevaluation patient is feeling somewhat better. We did discuss results. Patient does have coffee discharged at this time to follow-up with her orthopedic surgeon for further evaluation. She is instructed to follow-up with her primary care physician for repeat labs. Return parameters were discussed in detail. She verbalizes understanding and agrees with this plan. - Lab Data Result diagrams: 02/07/18 18:18 02/07/18 18:18 Lab Results 02/07/18 02/07/18 02/07/18 Range/Units 18:18 18:18 18:18 WBC 11.0 H (3.8-10.6) k/uL RBC 3.76 L (3.80-5.40) m/uL Hgb 11.2 L (11.4-16.0) gm/dL Hct 34.9 (34.0-46.0) % MCV 92.7 (80.0-100.0) fL MCH 29.9 (25.0-35.0) pg MCHC 32.2 (31.0-37.0) g/dL RDW 13.5 (11.5-15.5) % Plt Count 309 (150-450) k/uL Neutrophils % 71 % Lymphocytes % 16 % Monocytes % 9 % Eosinophils % 2 % Basophils % 0 % Neutrophils # 7.8 H (1.3-7.7) k/uL Lymphocytes # 1.8 (1.0-4.8) k/uL Monocytes # 0.9 (0-1.0) k/uL Eosinophils # 0.2 (0-0.7) k/uL Basophils # 0.1 (0-0.2) k/uL PT (9.0-12.0) sec INR (<1.2) APTT (22.0-30.0) sec Sodium 134 L (137-145) mmol/L Potassium 4.4 (3.5-5.1) mmol/L Chloride 105 (98-107) mmol/L Carbon Dioxide 20 L (22-30) mmol/L Anion Gap 9 mmol/L BUN 23 H (7-17) mg/dL Creatinine 1.05 H (0.52-1.04) mg/dL Est GFR (CKD-EPI)AfAm 60 (>60 ml/min/1.73 sqM) Est GFR (CKD-EPI)NonAf 52 (>60 ml/min/1.73 sqM) Glucose 96 (74-99) mg/dL Lactic Ac Sepsis Rflx Plasma Lactic Acid [place] (0.7-2.0) mmol/L Calcium 9.0 (8.4-10.2) mg/dL Total Bilirubin 0.7 (0.2-1.3) mg/dL AST 76 H (14-36) U/L ALT 35 (9-52) U/L Alkaline Phosphatase 108 (38-126) U/L Total Creatine Kinase 1129 H (30-135) U/L CK-MB (CK-2) 1.4 (0.0-2.4) ng/mL CK-MB (CK-2) Rel Index 0.1 Troponin I 0.031 (0.000-0.034) ng/mL Total Protein 6.0 L (6.3-8.2) g/dL Albumin 3.5 (3.5-5.0) g/dL Urine Color Urine Appearance (Clear) Urine pH (5.0-8.0) Ur Specific [place] (1.001-1.035) Urine Protein (Negative) Urine Glucose (UA) (Negative) Urine Ketones (Negative) Urine Blood (Negative) Urine Nitrite (Negative) Urine Bilirubin (Negative) Urine Urobilinogen (<2.0) mg/dL Ur Leukocyte Esterase (Negative) Urine RBC (0-5) /hpf Ur Squamous Epith Cells (0-4) /hpf Urine Bacteria (None) /hpf Urine Mucus (None) /hpf 02/07/18 02/07/18 02/07/18 Range/Units 18:18 18:18 18:49 WBC (3.8-10.6) k/uL RBC (3.80-5.40) m/uL Hgb (11.4-16.0) gm/dL Hct (34.0-46.0) % MCV (80.0-100.0) fL MCH (25.0-35.0) pg MCHC (31.0-37.0) g/dL RDW (11.5-15.5) % Plt Count (150-450) k/uL Neutrophils % % Lymphocytes % % Monocytes % % Eosinophils % % Basophils % % Neutrophils # (1.3-7.7) k/uL Lymphocytes # (1.0-4.8) k/uL Monocytes # (0-1.0) k/uL Eosinophils # (0-0.7) k/uL Basophils # (0-0.2) k/uL PT 10.5 (9.0-12.0) sec INR 1.1 (<1.2) APTT 23.5 (22.0-30.0) sec Sodium (137-145) mmol/L Potassium (3.5-5.1) mmol/L Chloride (98-107) mmol/L Carbon Dioxide (22-30) mmol/L Anion Gap mmol/L BUN (7-17) mg/dL Creatinine (0.52-1.04) mg/dL Est GFR (CKD-EPI)AfAm (>60 ml/min/1.73 sqM) Est GFR (CKD-EPI)NonAf (>60 ml/min/1.73 sqM) Glucose (74-99) mg/dL Lactic Ac Sepsis Rflx Y Plasma Lactic Acid Tom[place] 2.1 H* (0.7-2.0) mmol/L Calcium (8.4-10.2) mg/dL Total Bilirubin (0.2-1.3) mg/dL AST (14-36) U/L ALT (9-52) U/L Alkaline Phosphatase (38-126) U/L Total Creatine Kinase (30-135) U/L CK-MB (CK-2) (0.0-2.4) ng/mL CK-MB (CK-2) Rel Index Troponin I (0.000-0.034) ng/mL Total Protein (6.3-8.2) g/dL Albumin (3.5-5.0) g/dL Urine Color Urine Appearance (Clear) Urine pH (5.0-8.0) Ur Specific [place] (1.001-1.035) Urine Protein (Negative) Urine Glucose (UA) (Negative) Urine Ketones (Negative) Urine Blood (Negative) Urine Nitrite (Negative) Urine Bilirubin (Negative) Urine Urobilinogen (<2.0) mg/dL Ur Leukocyte Esterase (Negative) Urine RBC (0-5) /hpf Ur Squamous Epith Cells (0-4) /hpf Urine Bacteria (None) /hpf Urine Mucus (None) /hpf 02/07/18 02/07/18 Range/Units 19:39 22:55 WBC (3.8-10.6) k/uL RBC (3.80-5.40) m/uL Hgb (11.4-16.0) gm/dL Hct (34.0-46.0) % MCV (80.0-100.0) fL MCH (25.0-35.0) pg MCHC (31.0-37.0) g/dL RDW (11.5-15.5) % Plt Count (150-450) k/uL Neutrophils % % Lymphocytes % % Monocytes % % Eosinophils % % Basophils % % Neutrophils # (1.3-7.7) k/uL Lymphocytes # (1.0-4.8) k/uL Monocytes # (0-1.0) k/uL Eosinophils # (0-0.7) k/uL Basophils # (0-0.2) k/uL PT (9.0-12.0) sec INR (<1.2) APTT (22.0-30.0) sec Sodium (137-145) mmol/L Potassium (3.5-5.1) mmol/L Chloride (98-107) mmol/L Carbon Dioxide (22-30) mmol/L Anion Gap mmol/L BUN (7-17) mg/dL Creatinine (0.52-1.04) mg/dL Est GFR (CKD-EPI)AfAm (>60 ml/min/1.73 sqM) Est GFR (CKD-EPI)NonAf (>60 ml/min/1.73 sqM) Glucose (74-99) mg/dL Lactic Ac Sepsis Rflx Plasma Lactic Acid [place] 0.7 (0.7-2.0) mmol/L Calcium (8.4-10.2) mg/dL Total Bilirubin (0.2-1.3) mg/dL AST (14-36) U/L ALT (9-52) U/L Alkaline Phosphatase (38-126) U/L Total Creatine Kinase (30-135) U/L CK-MB (CK-2) (0.0-2.4) ng/mL CK-MB (CK-2) Rel Index Troponin I (0.000-0.034) ng/mL Total Protein (6.3-8.2) g/dL Albumin (3.5-5.0) g/dL Urine Color Light Yellow Urine Appearance Clear (Clear) Urine pH 5.0 (5.0-8.0) Ur Specific [place] 1.007 (1.001-1.035) Urine Protein Trace H (Negative) Urine Glucose (UA) Negative (Negative) Urine Ketones Negative (Negative) Urine Blood Trace H (Negative) Urine Nitrite Negative (Negative) Urine Bilirubin Negative (Negative) Urine Urobilinogen <2.0 (<2.0) mg/dL Ur Leukocyte Esterase Negative (Negative) Urine RBC <1 (0-5) /hpf Ur Squamous Epith Cells <1 (0-4) /hpf Urine Bacteria Rare H (None) /hpf Urine Mucus Rare H (None) /hpf - Radiology Data Radiology results: report reviewed, image reviewed CT of the chest with contrast was performed. Report was reviewed in its entirety. Impression by Dr. Smith shows pulmonary interstitial fibrotic changes. Emphysema. No evidence of pulmonary embolism. Two-view x-ray of the chest was obtained. Report was reviewed in its entirety. Impression by Dr. Lane Fam shows findings just mild interstitial face pulmonary edema. Disposition Clinical Impression: Weakness Disposition: HOME SELF-CARE Condition: Good Instructions: Weakness (ED) Additional Instructions: Follow-up with your primary care physician for recheck within the next 1-2 days. Follow-up with orthopedic surgeon for further evaluation of your incision. Return here immediately for any new, worsening, or concerning symptoms. Is patient prescribed a controlled substance at d/c from ED?: No Referrals: Ramiro Ortiz MD [Primary Care Provider] - 1-2 days Time of Disposition: 23:06
[2018-02-07 18:40] LABS: Basophils # (A) 0.1 k/uL (0-0.2); Basophils % (A) 0 %; Eosinophils # (A) 0.2 k/uL (0-0.7); Eosinophils % (A) 2 %; HCT 34.9 % (34.0-46.0); HGB 11.2 gm/dL (11.4-16.0); Lymphocytes # (A) 1.8 k/uL (1.0-4.8); Lymphocytes % (A) 16 %; MCH 29.9 pg (25.0-35.0); MCHC 32.2 g/dL (31.0-37.0); MCV 92.7 fL (80.0-100.0); Mean Platelet Volume 6.9; Monocytes # (A) 0.9 k/uL (0-1.0); Monocytes % (A) 9 %; Neutrophils # (A) 7.8 k/uL (1.3-7.7); Neutrophils % (A) 71 %; Platelet Count 309 k/uL (150-450); RBC 3.76 m/uL (3.80-5.40); RDW 13.5 % (11.5-15.5)
[2018-02-07 18:42] LABS: INR 1.1 (<1.2); Partial Thromboplastin Time 23.5 sec (22.0-30.0); Prothrombin Time 10.5 sec (9.0-12.0)
[2018-02-07 18:45] LABS: Albumin 3.5 g/dL (3.5-5.0); Potassium 4.4 mmol/L (3.5-5.1); Total Bilirubin 0.7 mg/dL (0.2-1.3)
[2018-02-07 19:04] LABS: Creatine Kinase MB 1.4 ng/mL (0.0-2.4); Troponin I 0.031 ng/mL (0.000-0.034)
--- NOTE | 2018-02-07 19:41 | XR ---
EXAMINATION: XR chest 2V DATE AND TIME: 02/07/2018 6:50 PM ORDERING PROVIDER: Lisa Carver CLINICAL INDICATION: Weakness TECHNIQUE: PA and lateral COMPARISON: None. DESCRIPTION: The pulmonary vasculature is mild moderately silhouette by a fine reticular pattern of increased atte nuation having the radiographic appearance of mild interstitial phase pulmonary edema. Differential i ncludes chronic interstitial lung changes. There are no pulmonary consolidations or bands of atelectasis. The pleural spaces are negative. The cardiac silhouette is not enlarged. The mediastinal and pleural silhouettes are unremarkable. The skeletal structures are intact without focal findings. The soft tissues are unremarkable. IMPRESSION: Findings suggest mild interstitial phase pulmonary edema.
[2018-02-07 19:54] LABS: Appearance,Urine Clear (Clear); Bacteria,Urine Rare /hpf; Bilirubin,Urine Negative (Negative); Blood,Urine Trace (Negative); Color,Urine Light Yellow; Glucose,Urine (UA) Negative (Negative); Ketones,Urine Negative (Negative); Leukocyte Esterase,Urine Negative (Negative); Mucus,Urine Rare /hpf; Nitrite,Urine Negative (Negative); Protein,Urine Trace (Negative); RBC,Urine <1 /hpf (0-5); Specific Gravity,Urine 1.007 (1.001-1.035); Squamous Epithelial Cell,Urine <1 /hpf (0-4); Urobilinogen,Urine <2.0 mg/dL (<2.0)
[2018-02-07] MEDS ORDERED: SODIUM CHLORIDE 0.9% 500 ML IV ONE (20:23)
[2018-02-07] MEDS ORDERED: diphenhydrAMINE 50 MG/ML 1 ML VIAL IVP STA (20:39)
[2018-02-07] MEDS ORDERED: FAMOTIDINE 20 MG/2 ML VIAL IV STA (20:39)
[2018-02-07] MEDS ORDERED: methylPREDNISolone SOD SUCCI 125 MG/2 ML VIAL IV STA (20:39)
--- NOTE | 2018-02-07 21:39 | CT ---
EXAMINATION TYPE: CT chest angio for PE DATE OF EXAM: 02/07/2018 COMPARISON: None HISTORY: Abnormal labs chest pain CT DLP: 309.7 mGycm Automated exposure control for dose reduction was used. CONTRAST: CT Chest for pulmonary embolism performed with with IV Contrast, patient injected with 80 mL of Isovu e 370. There are 3-D post processed images. FINDINGS: . There is subsegmental atelectasis at the posterior lung bases. There is coarse interstitial density in the lungs and mild pulmonary emphysema. There is no evidence of a pulmonary mass. Heart size is n ormal. Thoracic aorta is atheromatous without evidence of aneurysm or dissection. There is no mediast inal adenopathy. There are no hilar masses. There is normal contrast opacification of the pulmonary arteries. There are no filling defects. There is spurring in the thoracic spine. IMPRESSION: Pulmonary interstitial fibrotic changes. Emphysema. No evidence of pulmonary embolism.
[2018-02-07 23:25] VITALS: BP 148/71; PULSE 73; TEMP 98.7
== END 2018-02-07 23:31 | disposition home or self-care (01) ==
LOC: EC 15:55
DX: R53.1 Weakness (principal); R06.02 Shortness of breath; R05 Cough; J44.9 Chronic obstructive pulmonary disease, unspecified; K21.9 Gastro-esophageal reflux disease without esophagitis; E78.5 Hyperlipidemia, unspecified; M19.90 Unspecified osteoarthritis, unspecified site; I12.9 Hypertensive chronic kidney disease with stage 1 through stage 4 chronic kidney disease, or unspecified chronic kidney disease; N18.3 Chronic kidney disease, stage 3 (moderate); F32.9 Major depressive disorder, single episode, unspecified; F41.9 Anxiety disorder, unspecified; G62.9 Polyneuropathy, unspecified; Z87.891 Personal history of nicotine dependence; Z79.899 Other long term (current) drug therapy; Z91.041 Radiographic dye allergy status; Z88.8 Allergy status to other drugs, medicaments and biological substances
CPT/HCPCS: 36415; 93005; 80053; 82550; 82553; 83605; 84484; 85025; 85610; 85730; 81001; 71046; 71275; 99285; 96374; 96375 ×2; 96361 ×5; J1200; J2930; Q9967

== ENCOUNTER → 2020-01-30 | Outpatient (CLI) | payer MEDICARE ==
--- NOTE | 2020-02-23 14:37 | MM ---
Reason for exam: screening (asymptomatic). Last mammogram was performed 4 years and 1 month ago. History: Patient is postmenopausal. Took estrogen for 20 years beginning at age 45. Physical Findings: A clinical breast exam by your physician is recommended on an annual basis and results should be correlated with mammographic findings. MG 3D Screening Mammo W/Cad Bilateral CC and MLO view(s) were taken. Prior study comparison: December 24, 2015, left breast MG 3d diag mammo w/cad LT. May 19, 2015, left breast MG 3d work up w/cad LT. May 17, 2015, bilateral MG screening mammo w CAD. The breast tissue is heterogeneously dense. This may lower the sensitivity of mammography. There are benign appearing round calcifications bilaterally. Focal asymmetry 6mm left MLO 16/63 upper outer aspect. This finding is changed when compared with previous exams. ASSESSMENT: Incomplete: need additional imaging evaluation, BI-RAD 0 RECOMMENDATION: Special view mammogram of the left breast. If lesion persists on supplemental views, image directed ultrasound is recommended. [facility] will attempt to contact patient to return for supplemental views and ultrasound if indicated.
== END | disposition home or self-care (01) ==
LOC: RADMAMWWP 13:09
PROVIDERS: ATTEND Family Medicine
DX: Z12.31 Encounter for screening mammogram for malignant neoplasm of breast (principal)
CPT/HCPCS: 77063; 77067

== ENCOUNTER → 2020-03-18 | Outpatient (CLI) | payer MEDICARE ==
--- NOTE | 2020-03-18 14:28 | MM ---
Reason for exam: additional evaluation requested from abnormal screening. Last mammogram was performed 2 months ago. History: Patient is postmenopausal. Took estrogen for 20 years beginning at age 45. Physical Findings: Nurse did not find any significant physical abnormalities on exam. MG 3D Work Up W/Cad LT ML and spot compression MLO view(s) were taken of the left breast. Prior study comparison: January 30, 2020, bilateral MG 3d screening mammo w/cad. October 09, 2018, mammogram, performed at [place]. There are scattered fibroglandular densities. Superior anterior left MLO asymmetric density disperses on additional views. These results were verbally communicated with the patient and result sheet given to the patient on 03/18/20. ASSESSMENT: Negative, BI-RAD 1 RECOMMENDATION: Return to routine screening mammogram schedule for both breasts.
== END | disposition home or self-care (01) ==
LOC: RADMAMWWP 13:30
PROVIDERS: ATTEND Family Medicine
DX: R92.8 Other abnormal and inconclusive findings on diagnostic imaging of breast (principal)
CPT/HCPCS: 77065; G0279; 77061

== ENCOUNTER 2020-12-06 14:14 | Inpatient (IN) | payer MEDICARE ==
--- NOTE | 2020-12-06 15:55 | ED ---
General Adult HPI - General Chief complaint: GI Bleed Stated complaint: rectal bleeding Time Seen by Provider: 12/06/20 15:20 Source: patient, RN notes reviewed Mode of arrival: wheelchair Limitations: no limitations - History of Present Illness Initial comments: Patient is a pleasant 80-year-old female presenting to the emergency department with complaints of rectal bleeding. Onset of symptoms was this morning. Patient has had 3 or 4 episodes. Patient has had some leakage with blood clots as well as bright red blood. Patient also has some stool mixed in. Patient does have a history of internal hemorrhoids. Patient states there is a mild sub tle feeling of her stomach however not pain. Patient did vomit once or twice without blood. Patient is not on blood thinners. No weakness or dyspnea. Patient has had some nasal and chest congestion with occasional cough over the past week or 2 - Related Data Home Medications Medication Instructions Recorded Confirmed Baclofen 10 mg PO HS 01/29/18 02/07/18 Cholecalciferol [Vitamin D3] 5,000 unit PO BID 01/29/18 02/07/18 Clobetasol Propionate [Temovate 1 applic TOPICAL BID 01/29/18 02/07/18 0.05% Cream] Cyanocobalamin (Vitamin B-12) 3,000 mcg PO DAILY 01/29/18 02/07/18 [Vitamin B-12] DULoxetine HCL [Cymbalta] 30 mg PO HS 01/29/18 02/07/18 Floragen 3 (Dose Unknown) 1 tab PO DAILY 01/29/18 02/07/18 Ketogaba/Baclo/Lido/Prilo(Nmc) 1 applicate TOPICAL TID PRN 01/29/18 02/07/18 Levothyroxine Sodium 25 mcg PO QAM 01/29/18 02/07/18 Lidocaine/Phylocaine 1 applicate TOPICAL QID PRN 01/29/18 02/07/18 Nefazodone HCl 150 mg PO DAILY@1500 01/29/18 02/07/18 Pravastatin Sodium [Pravachol] 10 mg PO Q48H 01/29/18 02/07/18 Propranolol HCl [Inderal] 60 mg PO QAM 01/29/18 02/07/18 Triamcinolone 0.5% Cream [Kenalog 1 applic TOPICAL TID PRN 01/29/18 02/07/18 0.5% Cream] Vitamin E (Dl,Tocopheryl Acet) 400 unit PO DAILY 01/29/18 02/07/18 [Vitamin E] hydrOXYzine HCL [Atarax] 10 mg PO BID 01/29/18 02/07/18 rOPINIRole HCL [Requip] 1 mg PO BID 01/29/18 02/07/18 Losartan [Cozaar] 25 mg PO HS 02/04/18 02/07/18 Previous Rx's Medication Instructions Recorded Aspirin 325 mg PO BID #60 tab 02/05/18 HYDROcodone/APAP 7.5-325MG [[place] 1 - 2 each PO Q6HR PRN #56 tab 02/05/18 7.5] traMADol HCl [Ultram] 50 mg PO Q6H PRN #28 tab 02/05/18 Allergies Allergy/AdvReac Type Severity Reaction Status Date / Time Iodinated Contrast Media Allergy Dyspnea Verified 12/06/20 17:34 [Iodinated Contrast- Oral and IV Dye] niacin Allergy headaches Verified 12/06/20 17:34 and shakes Qjdlkfs-Sch-Hkc Reductase Allergy dizziness Verified 12/06/20 17:34 Inhibitor perflutren [From Definity] AdvReac Dyspnea Verified 12/06/20 17:34 Review of Systems ROS Statement: Those systems with pertinent positive or pertinent negative responses have been documented in the HPI. ROS Other: All systems not noted in ROS Statement are negative. Constitutional: Denies: fever Eyes: Denies: eye pain ENT: Reports: congestion. Denies: ear pain Respiratory: Reports: cough Cardiovascular: Denies: chest pain Endocrine: Denies: fatigue Gastrointestinal: Reports: as per HPI, hematochezia Genitourinary: Denies: dysuria Musculoskeletal: Denies: back pain Skin: Denies: rash Neurological: Denies: weakness Past Medical History Past Medical History: COPD, GERD/Reflux, Hyperlipidemia, Hypertension, Osteoarthritis (OA), Pneumonia, Skin Disorder, Thyroid Disorder Additional Past Medical History / Comment(s): psoriasis, migraines, hx brain aneurysm, varicose veins, palpitations with anxiety attacks, emphysema, bronchitis, neuropathy, hypoglycemia, stage III kidney disease, degenerative disk diasease, dry eyes/eye distortion/double vision, spinal stenosis, urinary leakage(wears pads), restless legs History of Any Multi-Drug Resistant Organisms: None Reported Past Surgical History: Appendectomy, Hysterectomy, Orthopedic Surgery, Tonsillectomy Additional Past Surgical History / Comment(s): surgery for brain aneurysm/clips(can not have MRI's), ORIF left wrist, cyst removed under eyelids, sinus fisutula surgery, mult foot surgergies(bunions, toes rearranged, tumors in feet removed), jia cataracts, membrane on retina removed jia eyes, yag procedure to put holes in lens jia eyes, Past Anesthesia/Blood Transfusion Reactions: No Reported Reaction Past Psychological History: Anxiety, Depression Smoking Status: Never smoker Past Alcohol Use History: Occasional Past Drug Use History: None Reported - Past Family History Father Family Medical History: Cancer Additional Family Medical History / Comment(s): colon Brother(s) Family Medical History: Cancer Additional Family Medical History / Comment(s): pancreatic General Exam Limitations: no limitations General appearance: alert, in no apparent distress Head exam: Present: normocephalic Eye exam: Present: normal appearance Neck exam: Present: normal inspection Respiratory exam: Present: normal lung sounds bilaterally Cardiovascular Exam: Present: regular rate, normal rhythm GI/Abdominal exam: Present: soft. Absent: distended, tenderness, pulsatile mass Rectal exam: Present: bloody stool Extremities exam: Present: normal inspection Neurological exam: Present: alert Psychiatric exam: Present: normal affect, normal mood Skin exam: Present: normal color Course Vital Signs 12/06/20 14:24 Temperature 98.1 F Pulse Rate 100 Respiratory 18 Rate Blood Pressure 132/90 O2 Sat by Pulse 94 L Oximetry Medical Decision Making - Medical Decision Making Patient reevaluated and resting comfortably in bed. Patient and family updated on results and plan. Case was discussed with Dr. Shay, covering Dr. Ortiz, who will admit. - Lab Data Result diagrams: 12/06/20 16:13 12/06/20 16:55 Lab Results 12/06/20 12/06/20 12/06/20 Range/Units 16:13 16:13 16:13 WBC 8.5 (3.8-10.6) k/uL RBC 5.05 (3.80-5.40) m/uL Hgb 15.4 (11.4-16.0) gm/dL Hct 46.8 H (34.0-46.0) % MCV 92.7 (80.0-100.0) fL MCH 30.4 (25.0-35.0) pg MCHC 32.8 (31.0-37.0) g/dL RDW 13.6 (11.5-15.5) % Plt Count 268 (150-450) k/uL MPV 7.4 Neutrophils % 57 % Lymphocytes % 29 % Monocytes % 9 % Eosinophils % 2 % Basophils % 1 % Neutrophils # 4.8 (1.3-7.7) k/uL Lymphocytes # 2.5 (1.0-4.8) k/uL Monocytes # 0.8 (0-1.0) k/uL Eosinophils # 0.2 (0-0.7) k/uL Basophils # 0.1 (0-0.2) k/uL Sodium (137-145) mmol/L Potassium (3.5-5.1) mmol/L Chloride (98-107) mmol/L Carbon Dioxide (22-30) mmol/L Anion Gap mmol/L BUN (7-17) mg/dL Creatinine (0.52-1.04) mg/dL Est GFR (CKD-EPI)AfAm (>60 ml/min/1.73 sqM) Est GFR (CKD-EPI)NonAf (>60 ml/min/1.73 sqM) Glucose (74-99) mg/dL Calcium (8.4-10.2) mg/dL Total Bilirubin (0.2-1.3) mg/dL AST (14-36) U/L ALT (4-34) U/L Alkaline Phosphatase (38-126) U/L Total Protein (6.3-8.2) g/dL Albumin (3.5-5.0) g/dL Stool Occult Blood Positive H (Negative) Coronavirus (PCR) Not Detected (Not Detectd) 12/06/20 Range/Units 16:55 WBC (3.8-10.6) k/uL RBC (3.80-5.40) m/uL Hgb (11.4-16.0) gm/dL Hct (34.0-46.0) % MCV (80.0-100.0) fL MCH (25.0-35.0) pg MCHC (31.0-37.0) g/dL RDW (11.5-15.5) % Plt Count (150-450) k/uL MPV Neutrophils % % Lymphocytes % % Monocytes % % Eosinophils % % Basophils % % Neutrophils # (1.3-7.7) k/uL Lymphocytes # (1.0-4.8) k/uL Monocytes # (0-1.0) k/uL Eosinophils # (0-0.7) k/uL Basophils # (0-0.2) k/uL Sodium 138 (137-145) mmol/L Potassium 4.0 (3.5-5.1) mmol/L Chloride 103 (98-107) mmol/L Carbon Dioxide 28 (22-30) mmol/L Anion Gap 7 mmol/L BUN 21 H (7-17) mg/dL Creatinine 0.94 (0.52-1.04) mg/dL Est GFR (CKD-EPI)AfAm 67 (>60 ml/min/1.73 sqM) Est GFR (CKD-EPI)NonAf 58 (>60 ml/min/1.73 sqM) Glucose 99 (74-99) mg/dL Calcium 9.6 (8.4-10.2) mg/dL Total Bilirubin 0.2 (0.2-1.3) mg/dL AST 29 (14-36) U/L ALT 20 (4-34) U/L Alkaline Phosphatase 89 (38-126) U/L Total Protein 6.7 (6.3-8.2) g/dL Albumin 4.1 (3.5-5.0) g/dL Stool Occult Blood (Negative) Coronavirus (PCR) (Not Detectd) Disposition Clinical Impression: Lower gastrointestinal hemorrhage Disposition: ADMITTED IP TO THIS HOSP Is patient prescribed a controlled substance at d/c from ED?: No Referrals: Ramiro Ortiz MD [Primary Care Provider] - 1-2 days Decision Time: 17:54
[2020-12-06] MEDS ORDERED: PANTOPRAZOLE 40 MG/10 ML VIAL IVP STA (16:06)
[2020-12-06] MEDS ORDERED: SODIUM CHLORIDE 0.9% 1,000 ML IV STA (16:06)
[2020-12-06 16:38] LABS: Basophils # (A) 0.1 k/uL (0-0.2); Basophils % (A) 1 %; Eosinophils # (A) 0.2 k/uL (0-0.7); Eosinophils % (A) 2 %; HCT 46.8 % (34.0-46.0); HGB 15.4 gm/dL (11.4-16.0); Lymphocytes # (A) 2.5 k/uL (1.0-4.8); Lymphocytes % (A) 29 %; MCH 30.4 pg (25.0-35.0); MCHC 32.8 g/dL (31.0-37.0); MCV 92.7 fL (80.0-100.0); Mean Platelet Volume 7.4; Monocytes # (A) 0.8 k/uL (0-1.0); Monocytes % (A) 9 %; Neutrophils # (A) 4.8 k/uL (1.3-7.7); Neutrophils % (A) 57 %; Platelet Count 268 k/uL (150-450); RBC 5.05 m/uL (3.80-5.40); RDW 13.6 % (11.5-15.5); WBC 8.5 k/uL (3.8-10.6)
[2020-12-06 17:12] LABS: Albumin 4.1 g/dL (3.5-5.0); Calcium 9.6 mg/dL (8.4-10.2); Total Bilirubin 0.2 mg/dL (0.2-1.3); Total Protein 6.7 g/dL (6.3-8.2)
[2020-12-06 17:53] LABS: INR 0.9 (<1.2)
[2020-12-06] MEDS ORDERED: NALOXONE 0.4 MG/ML 1 ML VIAL IV PRN (17:54)
--- NOTE | 2020-12-06 21:21 | P.HPIM ---
History of Present Illness H&P Date: 12/06/20 The patient is 80-year-old female with a PMH of type II DM, hyper lipidemia, hypothyroidism who presented to the emergency room with complaints of bloody bowel movements. The patient reports that over the past 1 week, she has been suffering with a cough and chest congestion along with fevers. She reports that during this time her bowel movements were normal with one regular consistency stool daily. She reports that today however after waking up, she experienced a lower abdominal discomfort and went to use the restroom where she had small amounts of mucousy stools, 4-5 times in quick succession. She reports dark red blood with mixed in stools. She reported mild to moderate lower left sided achy abdominal discomfort, 4-5 at maximal intensity just prior to the bowel movements, which currently has improved to 1 out of 10. She denied any prior history of GI bleeding. Reports that her last colonoscopy was 5 years ago and that she is currently due for repeat colonoscopy since they found polyps. she reports a history of internal hemorrhoids. She denied additional complaints. Reports that her cough and congestion are significantly improved and that she has not had any additional fevers the past 24 hours. Denied chest pain, shortness of breath, nausea, vomiting, dizziness. Denied weakness, numbness, tingling, headaches, visual disturbances. She underwent an extensive evaluation in the emergency room with laboratory evaluation showing hemoglobin of 15.4 with a fecal occult positive for blood. Coronavirus PCR was negative. Review of systems: Pertinent positives and negatives as discussed in HPI, a complete review of systems was performed and all other systems are negative. Physical examination: General: non toxic, no distress, appears at stated age,Obese Derm: no unusual rashes/lesions no unusual ecchymoses, warm, dry Head: atraumatic, normocephalic, symmetric Eyes: EOMI, no lid lag, anicteric sclera, pupils equal round reactive to light ENT: Nose and ears atraumatic, no thrush, no pharyngeal erythema Neck: No thyromegaly, no cervical lymphadenopathy, trachea midline, supple Mouth: no lip lesion, mucus membranes moist Cardiovascular: S1S2 reg, no murmur, positive posterior tibial pulse bilateral, no edema, capillary refill less than 2 seconds Lungs: CTA bilateral, no rhonchi, no rales , no accessory muscle use Abdominal: soft, mild suprapubic and left lower quadrant tenderness, no guarding, no appreciable organomegaly, normal bowel sounds Ext: no gross muscle atrophy, muscle strength 5 out of 5 in all 4 extremities grossly, no contractures, Neuro: CN II-XI grossly intact, light touch intact all 4 extremities, finger to nose within normal limits, Psych: Alert, oriented, appropriate affect Assessment/plan: GI bleeding with abdominal pain, differential includes proctitis in setting of mucus -Obtain fecal leukocytes -Check Calprotectin levels -GI consulted -Continue with Protonix -Monitor CBC -Continue IV fluids Chronic conditions:Type II DM, hyperlipidemia, hypothyroidism -Continue with home medications -Check A1c -Lispro insulin sliding scale blood glucose monitoring DVT prophylaxis -IPCDs The patient is admitted with an anticipated less than 2 midnight stay for evaluation of GIB CODE STATUS: Full Code Discussed with: Patient Anticipated discharge date: in am Anticipated discharge place: Home A total of 35 minutes was spent on the care of this complex patient more than 50% of the time was spent in counseling and care coordination. Past Medical History Past Medical History: COPD, GERD/Reflux, Hyperlipidemia, Hypertension, Osteoarthritis (OA), Pneumonia, Skin Disorder, Thyroid Disorder Additional Past Medical History / Comment(s): psoriasis, migraines, hx brain aneurysm, varicose veins, palpitations with anxiety attacks, emphysema, bronchitis, neuropathy, hypoglycemia, stage III kidney disease, degenerative disk diasease, dry eyes/eye distortion/double vision, spinal stenosis, urinary leakage(wears pads), restless legs History of Any Multi-Drug Resistant Organisms: None Reported Past Surgical History: Appendectomy, Hysterectomy, Orthopedic Surgery, Tonsillectomy Additional Past Surgical History / Comment(s): surgery for brain aneurysm/clips(can not have MRI's), ORIF left wrist, cyst removed under eyelids, sinus fisutula surgery, mult foot surgergies(bunions, toes rearranged, tumors in feet removed), jia cataracts, membrane on retina removed jia eyes, yag procedure to put holes in lens jia eyes, Past Anesthesia/Blood Transfusion Reactions: No Reported Reaction Past Psychological History: Anxiety, Depression Smoking Status: Never smoker Past Alcohol Use History: Occasional Past Drug Use History: None Reported - Past Family History Father Family Medical History: Cancer Additional Family Medical History / Comment(s): colon Brother(s) Family Medical History: Cancer Additional Family Medical History / Comment(s): pancreatic Medications and Allergies Home Medications Medication Instructions Recorded Confirmed Type Baclofen 10 mg PO HS PRN 01/29/18 12/06/20 History Clobetasol Propionate [Temovate 1 applic TOPICAL BID PRN 01/29/18 12/06/20 Histo ry 0.05% Cream] Cyanocobalamin (Vitamin B-12) 3,000 mcg PO DAILY 01/29/18 12/06/20 History [Vitamin B-12] Levothyroxine Sodium 25 mcg PO DAILY 01/29/18 12/06/20 History Pravastatin Sodium [Pravachol] 20 mg PO Q48H 01/29/18 12/06/20 History rOPINIRole HCL [Requip] 1 mg PO TID 01/29/18 12/06/20 History Cholecalciferol (Vitamin D3) 125 mcg PO DAILY 12/06/20 12/06/20 History [Vitamin D3 (5000 Iu)] Clotrimazole [Lotrimin AF] 1 applic TOPICAL BID PRN 12/06/20 12/06/20 History DULoxetine HCL [Cymbalta] 40 mg PO HS 12/06/20 12/06/20 History Fluticasone/Vilanterol [Breo 1 puff INHALATION RT-DAILY 12/06/20 12/06/20 History Ellipta 100-25 Mcg Inhaler] Gabapentin [Neurontin] 300 mg PO TID PRN 12/06/20 12/06/20 History Nystatin 100,000Unit/gm Cream 1 applic TOPICAL BID PRN 12/06/20 12/06/20 History [Mycostatin Cream] Oil Of Oregano 1,500 mg PO DAILY 12/06/20 12/06/20 History Turmeric Root Extract [Turmeric] 1,000 mg PO DAILY 12/06/20 12/06/20 History Urea 20% Hydrating Cream 1 applic TOPICAL BID PRN 12/06/20 12/06/20 History Vitamin E 400 unit PO DAILY 12/06/20 12/06/20 History carvediloL [Coreg] 6.25 mg PO BID 12/06/20 12/06/20 History l Acidophil/B Lactis/B Longum 460 mg PO DAILY 12/06/20 12/06/20 History [Florajen3 Capsule] metFORMIN HCL [Glucophage] 500 mg PO DAILY 12/06/20 12/06/20 History Allergies Allergy/AdvReac Type Severity Reaction Status Date / Time Iodinated Contrast Media Allergy Dyspnea Verified 12/06/20 17:34 [Iodinated Contrast- Oral and IV Dye] niacin Allergy headaches Verified 12/06/20 17:34 and shakes Oitderj-Vgn-Dqx Reductase Allergy dizziness Verified 12/06/20 17:34 Inhibitor perflutren [From Definity] AdvReac Dyspnea Verified 12/06/20 17:34 Physical Exam Vitals: Vital Signs Temp Pulse Resp BP Pulse Ox 12/06/20 19:40 79 14 147/93 93 L 12/06/20 19:30 81 20 149/88 93 L 12/06/20 18:30 75 18 148/79 95 12/06/20 17:30 86 20 129/72 95 12/06/20 14:24 98.1 F 100 18 132/90 94 L Intake and Output 12/06/20 12/06/20 12/06/20 06:59 14:59 22:59 Other: Weight 76.657 kg Results CBC & Chem 7: 12/06/20 16:13 12/06/20 16:55 Labs: Abnormal Lab Results - Last 24 Hours (Table) 12/06/20 12/06/20 12/06/20 Range/Units 16:13 16:13 16:55 Hct 46.8 H (34.0-46.0) % BUN 21 H (7-17) mg/dL Stool Occult Blood Positive H (Negative)
[2020-12-06] MEDS ORDERED: GABAPENTIN 300 MG CAP PO PRN (21:50)
[2020-12-06] MEDS ORDERED: BACLOFEN 10 MG TAB PO PRN (21:50)
[2020-12-07] MEDS: SODIUM CHLORIDE 0.9% 1,000 ML IV SCH ×2 (00:12→20:26)
[2020-12-07] MEDS: LEVOTHYROXINE 25 MCG TAB PO SCH (05:51)
[2020-12-07 06:56] LABS: Glucose,Whole Blood 111 mg/dL (75-99)
[2020-12-07] MEDS: SYMBICORT 80-4.5 MCG INHALER INHALATION SCH ×2 (07:55→20:11)
[2020-12-07] MEDS: INSULIN ASPART (NovoLOG) 100 UNIT/ML VIAL SQ SCH ×4 (08:27→21:20)
[2020-12-07] MEDS: carvediloL 6.25 MG TAB PO SCH ×2 (08:32→17:21)
[2020-12-07] MEDS: PANTOPRAZOLE 40 MG/10 ML VIAL IV SCH (08:32)
[2020-12-07] MEDS: CHOLECALCIFEROL 25 MCG (1000 IU) TABLET PO SCH (08:33)
[2020-12-07] MEDS ORDERED: PRAVASTATIN SODIUM 20 MG TAB PO SCH (09:00)
[2020-12-07 10:23] LABS: Basophils # (A) 0.04 X 10*3/uL (0.00-0.10); Basophils % (A) 0.6 %; Eosinophils # (A) 0.16 X 10*3/uL (0.04-0.35); Eosinophils % (A) 2.3 %; Lymphocytes # (A) 2.42 X 10*3/uL (0.90-5.00); Lymphocytes % (A) 34.2 %; MCH 30.8 pg (27.0-32.0); MCHC 32.6 g/dL (32.0-37.0); MCV 94.7 fL (80.0-97.0); Mean Platelet Volume 10.1 fL (9.5-12.2); Monocytes # (A) 0.72 X 10*3/uL (0.20-1.00); Monocytes % (A) 10.2 %; Neutrophils # (A) 3.72 X 10*3/uL (1.80-7.70); Neutrophils % (A) 52.4 %; Platelet Count 274 X 10*3/uL (140-440); RBC 4.54 X 10*6/uL (4.10-5.20); RDW 13.5 % (11.5-14.5); WBC 7.08 X 10*3/uL (4.50-10.00)
[2020-12-07 12:13] LABS: Glucose,Whole Blood 91 mg/dL (75-99)
[2020-12-07] MEDS ORDERED: PEG 3350-NA SULF,BICARB,CL/KCL 4,000 ML BOTTLE PO ONE (16:00)
--- NOTE | 2020-12-07 16:48 | P.PN ---
<Luis Arango - Last Filed: 12/07/20 16:40> Subjective Progress Note Date: 12/07/20 Hospital course: Patient is a 80-year-old female with a past medical history of CK D stage III, diabetes mellitus, hypertension, hyperlipidemia, hypothyroidism, COPD, and history of colonic polyps and internal hemorrhoids. She presented to the emergency department with a chief complaint of rectal bleeding. Patient reports normal day and suddenly feeling mild abdominal discomfort/cramping and left lower quadrant followed by recurrent episodes of bloody stools in which she describes as "jellylike." Patient was seen and fully evaluated in the emergency department she was found to have a positive fecal occult. Labs unremarkable with hemoglobin of 14.0. Patient admitted under our services for continued close medical management. Physical exam: General: non toxic, no distress, appears at stated age Derm: warm, dry Head: atraumatic, normocephalic, symmetric Eyes: EOMI, no lid lag, anicteric sclera Mouth: no lip lesion, mucus membranes moist Cardiovascular: S1S2 reg, no murmur, positive posterior tibial pulse bilateral, Lungs: CTA bilateral, no rhonchi, no rales , no accessory muscle use Abdominal: soft, nontender to palpation, no guarding, no appreciable organomegaly Ext: no gross muscle atrophy, no edema, no contractures Neuro: CN II-XI grossly intact, no focal neuro deficits Psych: Alert, oriented, appropriate affect Plan of care: GI bleeding with abdominal pain -Stool cultures and C. diff to be obtained. Obtain fecal leukocytes. -Monitor hemoglobin currently stable at 14.0. -GI consulted, appreciate further recommendations. -Protonix -Continue hydration with IV fluids Diabetes mellitus type 2 -Glycemic protocol with NovoLog sliding scale. Hypertension -Continue daily medication management, check vital signs. Hyperlipidemia -Continue daily medication regimen. Hypothyroidism -Continue daily medication regimen. CODE STATUS: Full code DVT prophylaxis: SCDs Discussed with: Patient and RN Anticipated discharge date: Clinical course to determine Anticipated discharge place: Home A total of 45 minutes was spent on the care of this complex patient more than 50% of the time was spent in counseling and care coordination. Objective - Vital Signs Vital signs: Vital Signs Temp 98.1 F 12/07/20 06:45 Pulse 77 12/07/20 06:45 Resp 16 12/07/20 06:45 BP 148/73 12/07/20 06:45 Pulse Ox 94 L 12/07/20 07:55 Intake & Output 12/06/20 12/07/20 12/07/20 18:59 06:59 18:59 Intake Total 600 Balance 600 Weight 76.657 kg 76.657 kg Intake: Intake, IV Titration 600 Amount Sodium Chloride 0.9% 1, 600 000 ml @ 75 mls/hr IV . [id number] STA Rx#:[id number] Other: Voiding Method Toilet # Voids 2 1 - Labs CBC & Chem 7: 12/07/20 04:55 12/06/20 16:55 Labs: Abnormal Lab Results - Last 24 Hours (Table) 12/06/20 12/06/20 12/06/20 Range/Units 16:13 16:13 16:55 Hct 46.8 H (34.0-46.0) % BUN 21 H (7-17) mg/dL POC Glucose (mg/dL) (75-99) mg/dL Stool Occult Blood Positive H (Negative) 12/07/20 Range/Units 06:46 Hct (34.0-46.0) % BUN (7-17) mg/dL POC Glucose (mg/dL) 111 H (75-99) mg/dL Stool Occult Blood (Negative) <Malachi Shay - Last Filed: 12/07/20 18:52> Objective - Vital Signs Vital signs: Vital Signs Temp 97.5 F L 12/07/20 13:30 Pulse 70 12/07/20 13:30 Resp 16 12/07/20 13:30 BP 123/61 12/07/20 13:30 Pulse Ox 98 12/07/20 13:30 Intake & Output 12/06/20 12/07/20 12/07/20 18:59 06:59 18:59 Intake Total 600 Balance 600 Weight 76.657 kg 76.657 kg Intake: Intake, IV Titration 600 Amount Sodium Chloride 0.9% 1, 600 000 ml @ 75 mls/hr IV . [id number] STA Rx#:[id number] Other: Voiding Method Toilet # Voids 2 3 - Labs CBC & Chem 7: 12/07/20 04:55 12/06/20 16:55 Labs: Abnormal Lab Results - Last 24 Hours (Table) 12/07/20 Range/Units 06:46 POC Glucose (mg/dL) 111 H (75-99) mg/dL Assessment and Plan Assessment: I reviewed the documentation as provided by the DAVIAN above, who is the original author of this note. I agree with the documented assessment and plan, with the following changes: None
--- NOTE | 2020-12-07 17:25 | CONS ---
CONSULTATION DATE OF SERVICE: 12/07/2020 REASON FOR CONSULTATION: Acute lower GI bleed. HISTORY OF PRESENT ILLNESS: The patient is a 80-year-old pleasant white female admitted to the hospital with acute lower GI bleed. She had multiple episodes of bright red blood per rectum that started yesterday afternoon and had about 3 episodes yesterday with some blood and mucus in the stool and small amount of clots. She has some cramping left lower quadrant abdominal pain, but she denies any nausea, vomiting. This morning she had another couple of episodes of bloody mucousy stools. Her hemoglobin is 15.4 g/dL. She recalls having a colonoscopy about 5 years ago and she states that she is currently due to have another colonoscopy. She denies any rectal pain. She denies any significant change in her bowel habits. PAST MEDICAL HISTORY: Significant for hypertension, chronic migraines, psoriasis, emphysema, anxiety, chronic kidney disease, stage 3, degenerative joint disease and spinal stenosis. PAST SURGICAL HISTORY: Appendectomy, hysterectomy, tonsillectomy, clipping for brain aneurysm. MEDICATIONS: Medications at home include baclofen, vitamin B12, levothyroxine, Pravachol, Requip, vitamin D3, Lotrimin, Cymbalta, Breo Ellipta, Neurontin, tumeric, Mycostatin cream p.r.n., carvedilol, Glucophage. ALLERGIES: IV DYE, NIACIN, STATINS. SOCIAL HISTORY: No smoking. No alcohol use. FAMILY HISTORY: Father had colon cancer. Brother had pancreatic cancer. REVIEW OF SYSTEMS: CARDIOPULMONARY: She denies any chest pain. No shortness of breath. GENITOURINARY: No dysuria or hematuria. MUSCULOSKELETAL: She does complain of chronic back pain. PSYCHIATRIC: Unremarkable. NEUROLOGY: Unremarkable. ENT/VISION: Unremarkable. CONSTITUTIONAL: No recent weight loss. No fever, chills, night sweats. HEMATOLOGY: Unremarkable. ENDOCRINE: Unremarkable. PHYSICAL EXAMINATION: She appears comfortable. VITAL SIGNS: Stable. Blood pressure is 123/61, pulse rate 70, temperature 97.5. HEENT examination unremarkable. Conjunctivae pink. Sclerae anicteric. Oral cavity no lesions. NECK: No JVD or lymph node enlargement. CHEST: Clear to auscultation. HEART: Regular rate and rhythm. ABDOMEN: Soft. Bowel sounds are positive. No organomegaly. EXTREMITIES: No pedal edema. NEUROLOGIC: Alert and oriented x3. No focal deficits. LABS: WBC 7, hemoglobin 14, platelets normal. Yesterday hemoglobin was 15.4. Basic metabolic panel is within normal limits. Stool occult blood was positive. Coronavirus PCR is negative. IMPRESSION: 1. Rectal bleeding since yesterday associated with mucus in the stool and small clots associated with some cramping left lower quadrant abdominal pain. Rule out colitis versus bleeding from internal hemorrhoids and colorectal neoplasia. Hemoglobin is stable at 14 g/dL. Last colonoscopy was 5 years ago and was noted to have history of colon polyps. 2. History of hypothyroidism. 3. History of diabetes mellitus and hypertension. 4. Anxiety and depression. RECOMMENDATIONS: 1. Clear liquid diet. 2. Monitor CBC daily. 3. Proceed with colonoscopy tomorrow. Discussed with the patient risks, benefits and complications of the procedure, and she is agreeable to it. Thank you for this consultation. MMANNE-MARIEL / IJN: [id number] /
[2020-12-07 17:27] LABS: Glucose,Whole Blood 77 mg/dL (75-99)
[2020-12-07 20:55] LABS: Glucose,Whole Blood 80 mg/dL (75-99)
[2020-12-07] MEDS ORDERED: DULoxetine HCL 20 MG CAPSULE.DR PO SCH (21:00)
[2020-12-08] MEDS: LEVOTHYROXINE 25 MCG TAB PO SCH (05:38)
[2020-12-08 07:19] LABS: Glucose,Whole Blood 97 mg/dL (75-99)
[2020-12-08 07:40] VITALS: RESP 16
[2020-12-08] MEDS: SYMBICORT 80-4.5 MCG INHALER INHALATION SCH (08:11)
[2020-12-08 08:48] LABS: HCT 42.1 % (34.0-46.0); HGB 14.4 gm/dL (11.4-16.0); MCH 31.4 pg (25.0-35.0); MCHC 34.1 g/dL (31.0-37.0); Mean Platelet Volume 6.8; Platelet Count 289 k/uL (150-450); RBC 4.58 m/uL (3.80-5.40); RDW 12.9 % (11.5-15.5); WBC 6.2 k/uL (3.8-10.6)
[2020-12-08] MEDS: PANTOPRAZOLE 40 MG/10 ML VIAL IV SCH (08:48)
[2020-12-08] MEDS: CHOLECALCIFEROL 25 MCG (1000 IU) TABLET PO SCH (08:48)
[2020-12-08] MEDS: carvediloL 6.25 MG TAB PO SCH (08:48)
[2020-12-08] MEDS: INSULIN ASPART (NovoLOG) 100 UNIT/ML VIAL SQ SCH (08:49)
[2020-12-08 11:19] LABS: Glucose,Whole Blood 99 mg/dL (75-99)
[2020-12-08] MEDS ORDERED: IV FLUID CONTINUATION 1,000 ML IV ONE (11:38)
[2020-12-08] MEDS ORDERED: PROPOFOL 10 MG/ML 20 ML VIAL IV ONE (11:38)
--- NOTE | 2020-12-08 12:00 | P.PCN ---
Date of Procedure: 12/08/20 Procedure(s) Performed: BRIEF HISTORY: Patient is a 80-year-old pleasant white female admitted hospital with acute lower GI bleed. She had multiple episodes of bright red blood per rectum with cramping left sided abdominal pain. Hemoglobin is 14 g/dL. She is scheduled for colonoscopy to evaluate further PROCEDURE PERFORMED: Colonoscopy the biopsy . PREOPERATIVE DIAGNOSIS: acute left-sided abdominal pain and lower GI bleed. IV sedation per Anesthesia PROCEDURE: After informed consent was obtained, the patient, was brought into the endoscopy unit. IV sedation was administered by Anesthesia under continuous monitoring. Digital rectal examination was normal. Initially the Olympus CF-160 flexible video colonoscope was then inserted in the rectum, and gradually advanced into ascending colon\without any difficulty. despite multiple attempts I was not able to advance the scope at the base of the cecum. However the ileocecal valve was visualized and appeared normal. Prep was excellent. Mucosa of the cecum, ascending colon, transverse colon, descending colon, sigmoid colon, Appeared normal. There was segmental colitis involving the distal sigmoid colon with mucosal erythema and friability extending from 20-40 cm from the anal verge consistent with mild ischemic colitis status post biopsies. Scattered sigmoid diverticulosis. The rectum appeared normal. Retroflexion was performed in the rectum and no lesions were seen. The patient tolerated the procedure well. IMPRESSION: Segmental colitis involving the sigmoid colon and sent from 20-40 cm from the anal verge with mucosal erythema and congestion consistent with mild ischemic colitis. Scattered left sided diverticulosis No evidence of colorectal neoplasia RECOMMENDATIONS: Findings of this examination were discussed with the patient . She was advised to follow with the biopsy results. Diet will be advanced as tolerated and she can be discharged home today with outpatient follow-up in 2 weeks.
[2020-12-08 13:13] VITALS: TEMP 97.9
[2020-12-08 13:25] VITALS: BP 158/110; PULSE 85
--- NOTE | 2020-12-08 14:10 | P.DS ---
Providers Date of admission: 12/08/20 09:14 Expected date of discharge: 12/08/20 Attending physician: Malachi Shay MD Consults: 12/06/20 17:59 Consult Physician Urgent Consulting Provider: Rosaline Strickland Consult Reason/Comments: gi hemorrhage Do you want consulting provider notified?: Yes Primary care physician: [facility] Hospital Course: Patient is a 80-year-old female with a past medical history of CKD stage III, diabetes mellitus, hypertension, hyperlipidemia, hypothyroidism, COPD, and history of colonic polyps and internal hemorrhoids. She presented to the emergency department with a chief complaint of rectal bleeding. Plan of care: GI bleeding with abdominal pain -Bleeding resolved. Hemoglobin remained stable. Seen and evaluated by GI. Status post colonoscopy showing evidence of segmental colitis involving the sigmoid colon. No evidence of active bleeding. There is scattered diverticulosis with no evidence of colorectal neoplasia. C. diff screen was negative. Patient was cleared by GI for discharge. Advance diet as tolerated. Follow-up in the office in 2 weeks for biopsy results. Diabetes mellitus type 2 Hypertension Hyperlipidemia Hypothyroidism Patient will be discharged home in a stable condition. For further details about this hospitalization please refer to the electronic chart. Time spent on discharge > 30 minutes including counseling and coordination of care Plan - Discharge Summary Discharge Rx Participant: Yes New Discharge Prescriptions: Continue Cyanocobalamin (Vitamin B-12) [Vitamin B-12] 3,000 mcg PO DAILY Pravastatin Sodium [Pravachol] 20 mg PO Q48H Baclofen 10 mg PO HS PRN PRN Reason: Pain rOPINIRole HCL [Requip] 1 mg PO TID Levothyroxine Sodium 25 mcg PO DAILY Clobetasol Propionate [Temovate 0.05% Cream] 1 applic TOPICAL BID PRN PRN Reason: Skin Irritation Oil Of Oregano 1,500 mg PO DAILY metFORMIN HCL [Glucophage] 500 mg PO DAILY Gabapentin [Neurontin] 300 mg PO TID PRN PRN Reason: Pain DULoxetine HCL [Cymbalta] 40 mg PO HS Urea 20% Hydrating Cream 1 applic TOPICAL BID PRN PRN Reason: Skin Irritation Nystatin 100,000Unit/gm Cream [Mycostatin Cream] 1 applic TOPICAL BID PRN PRN Reason: Skin Irritation Clotrimazole [Lotrimin AF] 1 applic TOPICAL BID PRN PRN Reason: Skin Irritation Fluticasone/Vilanterol [Breo Ellipta 100-25 Mcg Inhaler] 1 puff INHALATION RT-DAILY l Acidophil/B Lactis/B Longum [Florajen3 Capsule] 460 mg PO DAILY Turmeric Root Extract [Turmeric] 1,000 mg PO DAILY Vitamin E 400 unit PO DAILY Cholecalciferol (Vitamin D3) [Vitamin D3 (5000 Iu)] 125 mcg PO DAILY carvediloL [Coreg] 6.25 mg PO BID Discharge Medication List Baclofen 10 mg PO HS PRN 01/29/18 [History] Clobetasol Propionate [Temovate 0.05% Cream] 1 applic TOPICAL BID PRN 01/29/18 [History] Cyanocobalamin (Vitamin B-12) [Vitamin B-12] 3,000 mcg PO DAILY 01/29/18 [History] Levothyroxine Sodium 25 mcg PO DAILY 01/29/18 [History] Pravastatin Sodium [Pravachol] 20 mg PO Q48H 01/29/18 [History] rOPINIRole HCL [Requip] 1 mg PO TID 01/29/18 [History] Cholecalciferol (Vitamin D3) [Vitamin D3 (5000 Iu)] 125 mcg PO DAILY 12/06/20 [History] Clotrimazole [Lotrimin AF] 1 applic TOPICAL BID PRN 12/06/20 [History] DULoxetine HCL [Cymbalta] 40 mg PO HS 12/06/20 [History] Fluticasone/Vilanterol [Breo Ellipta 100-25 Mcg Inhaler] 1 puff INHALATION RT- DAILY 12/06/20 [History] Gabapentin [Neurontin] 300 mg PO TID PRN 12/06/20 [History] Nystatin 100,000Unit/gm Cream [Mycostatin Cream] 1 applic TOPICAL BID PRN 12/06/20 [History] Oil Of Oregano 1,500 mg PO DAILY 12/06/20 [History] Turmeric Root Extract [Turmeric] 1,000 mg PO DAILY 12/06/20 [History] Urea 20% Hydrating Cream 1 applic TOPICAL BID PRN 12/06/20 [History] Vitamin E 400 unit PO DAILY 12/06/20 [History] carvediloL [Coreg] 6.25 mg PO BID 12/06/20 [History] l Acidophil/B Lactis/B Longum [Florajen3 Capsule] 460 mg PO DAILY 12/06/20 [History] metFORMIN HCL [Glucophage] 500 mg PO DAILY 12/06/20 [History] Follow up Appointment(s)/Referral(s): Ramiro Ortiz MD [Primary Care Provider] - 1-2 days Discharge Disposition: HOME SELF-CARE
== END 2020-12-08 15:17 | disposition home or self-care (01) | DRG 386 ==
LOC: EC 14:14 → 6NMEDSUR 18:28 → OBSVTOIN 12-08 09:14
PROVIDERS: ADMIT Internal Medicine; ATTEND Internal Medicine
PROC: 0DBN8ZX Excision of Sigmoid Colon, Via Natural or Artificial Opening Endoscopic, Diagnostic (ICD-10-PCS; principal; 2020-12-08 08:00)
DX: K50.10 Crohn's disease of large intestine without complications (principal); K55.9 Vascular disorder of intestine, unspecified; E03.9 Hypothyroidism, unspecified; E78.5 Hyperlipidemia, unspecified; K64.8 Other hemorrhoids; N18.30 Chronic kidney disease, stage 3 unspecified; E11.22 Type 2 diabetes mellitus with diabetic chronic kidney disease; K21.9 Gastro-esophageal reflux disease without esophagitis; M19.90 Unspecified osteoarthritis, unspecified site; J43.9 Emphysema, unspecified; K57.30 Diverticulosis of large intestine without perforation or abscess without bleeding; F32.9 Major depressive disorder, single episode, unspecified; I12.9 Hypertensive chronic kidney disease with stage 1 through stage 4 chronic kidney disease, or unspecified chronic kidney disease; G25.81 Restless legs syndrome; Z20.822 Contact with and (suspected) exposure to COVID-19; Z79.899 Other long term (current) drug therapy; Z79.890 Hormone replacement therapy; Z79.84 Long term (current) use of oral hypoglycemic drugs; Z86.010 Personal history of colon polyps; Z88.8 Allergy status to other drugs, medicaments and biological substances; Z91.041 Radiographic dye allergy status; Z79.82 Long term (current) use of aspirin; Z90.710 Acquired absence of both cervix and uterus; Z90.49 Acquired absence of other specified parts of digestive tract; Z80.0 Family history of malignant neoplasm of digestive organs
CPT/HCPCS: 36415; 45380; 80053; 82272; 83993; 85025; 85027; 85610; 85730; 87324; 87635; 88305; 94760; 96361; 96374; 99285

== ENCOUNTER → 2021-04-08 | Outpatient (CLI) | payer MEDICARE ==
--- NOTE | 2021-04-11 09:44 | MM ---
Reason for exam: screening (asymptomatic). Last mammogram was performed 1 year and 1 month ago. History: Patient is postmenopausal. Took hormonal contraceptives for 2 years 6 months. Took estrogen for 20 years beginning at age 45. Physical Findings: A clinical breast exam by your physician is recommended on an annual basis and results should be correlated with mammographic findings. MG 3D Screening Mammo W/Cad Bilateral CC and MLO view(s) were taken. Prior study comparison: January 30, 2020, bilateral MG 3d screening mammo w/cad. October 09, 2018, mammogram, performed at [place]. August 07, 2017, mammogram, performed at [place]. The breast tissue is heterogeneously dense. This may lower the sensitivity of mammography. There are benign appearing round calcifications bilaterally. There is chronic nodularity in the left breast. There is no discrete abnormality. ASSESSMENT: Benign, BI-RAD 2 RECOMMENDATION: Routine screening mammogram of both breasts in 1 year.
== END | disposition home or self-care (01) ==
LOC: RADMAMWWP 07:51
PROVIDERS: ATTEND Family Medicine
DX: Z12.31 Encounter for screening mammogram for malignant neoplasm of breast (principal); Z78.0 Asymptomatic menopausal state
CPT/HCPCS: 77063; 77067